=== PATIENT | female | born 1940 | race Caucasian/White ===

== ENCOUNTER 2017-11-07 08:10 | Inpatient (IN) ==
[2017-11-07] MEDS ORDERED: 0.9 % SODIUM CHLORIDE 1,000 ML IV ONE (08:17)
[2017-11-07] MEDS ORDERED: LEVOFLOXACIN 750 MG/150 ML BAG IV ONE (08:25)
[2017-11-07] MEDS ORDERED: ACETAMINOPHEN 500 MG TABLET PO ONE (08:30)
--- NOTE | 2017-11-07 08:30 | Emergency Department Note ---
Fever HPI - General Chief Complaint: Fever Stated Complaint: Fever, neck pain Time Seen by Provider: 11/07/17 08:25 Source: patient Mode of arrival: EMS Limitations: no limitations - History of Present Illness HPI Narrative: Patient presents by ambulance, fever and malaise. Unclear what her home situation is, patient has active delirium. History of recent treatment for UTI , med unknown. Patient's main concern is "my neck hurts". Patient sedated, arousable briefly, mumbles, no historians available or family at the bedside - Related Data Home Medications Medication Instructions Recorded Confirmed Acetaminophen [Tylenol] 325 mg PO Q4HP PRN 11/04/17 11/04/17 Albuterol Sulfate [Ventolin] 2 puff INH Q4HP PRN 11/04/17 11/04/17 Baclofen [Lioresal] 5 mg PO HS 11/04/17 11/04/17 Carbidopa/Levodopa [Carbidopa-Levo 2 each PO TID 11/04/17 11/04/17 25-100 mg Odt] Carboxymethylcellulose Sodium 1 each OP Q2H 11/04/17 11/04/17 [Refresh Celluvisc] Dabigatran Etexilate Mesylate 150 mg PO BID 11/04/17 11/04/17 [Pradaxa] Fluticasone Propionate [Flovent 50 mcg IH BID 11/04/17 11/04/17 Diskus] Fluticasone/Vilanterol [Breo 1 inh IH DAILY 11/04/17 11/04/17 Ellipta 100-25 Mcg INH] Gabapentin [Neurontin] 900 mg PO TID 11/04/17 11/04/17 [place] Carbonate 150 mg PO BID 11/04/17 11/04/17 Nystatin Crm 1 dose TOPICAL TID 11/04/17 11/04/17 Omeprazole [PriLOSEC] 20 mg PO ACB 11/04/17 11/04/17 Ondansetron HCl [Zofran] 4 mg PO Q4-6H PRN 11/04/17 11/04/17 Oxybutynin Chloride [Oxybutynin 5 mg PO DAILY 11/04/17 11/04/17 Chloride ER] Primidone [Mysoline] 100 mg PO BID 11/04/17 11/04/17 Propranolol [Inderal] 20 mg PO BID 11/04/17 11/04/17 Sertraline HCl [Zoloft] 50 mg PO DAILY 11/04/17 11/04/17 Umeclidinium [place] [Incruse 62.5 mcg IH DAILY 11/04/17 11/04/17 Ellipta] Vitamin D3 5,000 unit PO DAILY 11/04/17 11/04/17 busPIRone HCL [Buspirone HCl] 10 mg PO TID 11/04/17 11/04/17 oxyCODONE HCL [Oxycodone HCl] 1 tab PO QIDP 11/04/17 11/04/17 rOPINIRole HCL [Requip] 0.5 mg PO BID 11/04/17 11/04/17 Allergies Allergy/AdvReac Type Severity Reaction Status Date / Time lactose Allergy Verified 11/07/17 08:13 pollen extracts Allergy Verified 11/07/17 08:13 promethazine Allergy Verified 11/07/17 08:13 Review of Systems Limitations: ROS unobtainable due to patients medical condition Fever PMH - Past Medical History PMFSH Narrative: History obtained from chart review Medical history: Reports: asthma, GERD, hypertension, pulmonary embolus, other ( RLS. Chronic pain. Urinary incontinence. Vitamin D deficiency. Polyneuropathy. UTI's. Tremor. Parkinson's. DVT.) Surgical history ED: Reports: non-contributory Psychiatric history: Reports: bipolar Family history: Reports: no significant family history, non-contributory - Social History smoking status: Unknown if ever smoked Physical Exam Limitations: no limitations General appearance: in distress, lethargic, malaise Head: atraumatic, normocephalic Eye: Present: normal appearance ENT: normal exam, mucous membranes dry Neck: Present: normal inspection, tenderness (Diffusely: head shoulders and neck ). Absent: lymphadenopathy Chest: Present: normal inspection, symmetric chest wall rise. Absent: tenderness Respiratory: Present: normal lung sounds bilaterally, other (No tachypnea). Absent: respiratory distress Cardiovascular: Present: regular rate, normal rhythm. Absent: systolic murmur Abdominal: Present: soft. Absent: tenderness Extremities: Present: pedal edema, pretibial edema (3+ pedal) Neurological: Absent: alert, oriented X3 Psychiatric: Present: flat affect Skin: Present: warm. Absent: diaphoresis Course Vital Signs Temperature 101.7 F H 11/07/17 08:10 Pulse Rate 80 11/07/17 08:10 Respiratory Rate 16 11/07/17 08:10 Blood Pressure 170/89 11/07/17 08:10 Pulse Oximetry (%) 96 11/07/17 08:10 Temperature 101.7 F H 11/07/17 08:10 Pulse Rate 76 11/07/17 08:26 Respiratory Rate 16 11/07/17 08:10 Blood Pressure 149/130 11/07/17 08:20 Pulse Oximetry (%) 95 11/07/17 08:26 Disposition Pt seen by PROFESSIONAL DEVELOPMENT INSTRUCTOR/PA only: No Clinical Impression: Acute febrile illness, Acute delirium Summary: Suspect bacterial infection, possible viral Cultures obtained, urinalysis and imaging pending Patient CARE to be transition to Dr. sanches at shift change, see his report for final diagnosis and disposition Disposition: Still a Patient
--- NOTE | 2017-11-07 09:01 | XRay Report ---
INDICATION: Fever TECHNIQUE: AP chest x-ray,semierect portable COMPARISON: 11/04/2017 FINDINGS:Mild left basilar infiltrate. Mild infiltrate at the right cardiophrenic angle. Findings may represent pneumonia in this patient with a history of fever. Mid and upper lungs are negative. Heart size and pulmonary vascularity are within normal limits considering AP positioning. IMPRESSION: 1. Small bibasilar infiltrates 2. Findings consistent with pneumonia Interpreted and Authenticated by: Tristian Lorenzo 11/07/17
[2017-11-07 09:08] LABS: Basophils # (Auto) 0 K/mcL (0.0-0.3); Basophils % (Auto) 0 % (0.0-2.0); Eosinophils # (Auto) 0.1 K/mcL (0.0-0.7); Eosinophils % (Auto) 1.4 % (0.0-7.0); Granulocytes % (Auto) 78.7 % (38.0-78.0); Lymphocytes % (Auto) 10.8 % (15.5-49.0); Mean Cell Volume 91.5 fL (80.0-100.0); Mean Corpuscular HGB Conc 32.7 g/dL (31.0-36.0); Mean Corpuscular Hemoglobin 29.9 pg (26.0-34.0); Monocytes # (Auto) 0.9 K/mcL (0.1-0.9); Monocytes % (Auto) 9.1 % (1.0-12.0); Platelet Count 330 K/mcL (140-440); RBC 3.82 M/mcL (4.00-5.20); Red Cell Distribution Width 13.6 % (11.5-14.5)
[2017-11-07 09:38] LABS: ALT/SGPT < 5 U/l (0-40); Albumin 3.6 gm/dL (3.2-5.2); Albumin/Globulin Ratio 1.1 (1.0-2.3); Alkaline Phosphatase 77 U/L (39-117); Blood Urea Nitrogen 10 mg/dl (8-23)
--- NOTE | 2017-11-07 10:13 | Cat Scan Report ---
CLINICAL INFORMATION: Fall. Head injury. COMPARISON: None. TECHNIQUE: Axial noncontrast-enhanced images through the brain. FINDINGS: No acute intracranial hemorrhage. No subdural or subarachnoid hemorrhage. No focal intra-axial attenuation abnormalities. No intra-axial hematoma. No localized mass effect. No midline shift. There is age appropriate cerebral atrophy and mild white matter abnormality. There is mild cerebellar atrophy. Basilar cisterns are normal. No calvarial fracture. Temporal bones are negative. There is inflammatory disease within ethmoid sinuses bilaterally. Mild inflammatory disease within sphenoid and right frontal sinuses IMPRESSION: 1. No acute intracranial hemorrhage. No acute or focal abnormality 2. Soft tissue abnormality within paranasal sinuses consistent with inflammatory disease The exam was performed using radiation dose optimization techniques including, but not limited to, automated exposure control, adjustment of the mA and/or kV according to patient size and use of iterative reconstruction technique. Interpreted and Authenticated by: Tristian Lorenzo 11/07/17
--- NOTE | 2017-11-07 10:18 | Cat Scan Report ---
CLINICAL INFORMATION: Fall. Cervical spine pain TECHNIQUE: Axial thin section images of the cervical spine. Sagittally and coronally reformatted images COMPARISON: None. FINDINGS: No acute cervical spine fracture. Cervical vertebral bodies and spinous processes are negative. Facet joints are normally aligned. No perched or locked facet. Multilevel degenerative disc disease and facet arthropathy. Asymmetric left C2-C3 facet disease. Asymmetric C3-C4 left facet arthropathy. There is bilateral C4-C5 facet arthropathy. There is mild C4-C5 anterolisthesis. There is mild wedging deformity of the C5 vertebral body. Odontoid process is negative. No lateral axial subluxation. Occipital condyles are negative. No prevertebral soft tissue abnormality. There is a 2 cm left thyroid nodule. There are smaller nodules as well. Thyroid ultrasound recommended No pneumothorax. IMPRESSION: 1. Multilevel degenerative disc disease and facet arthropathy. 2. Mild C4-C5 anterolisthesis 3. No cervical spine fracture or acute posttraumatic abnormality 4. Findings consistent with multinodular thyroid Interpreted and Authenticated by: Tristian Lorenzo 11/07/17
[2017-11-07 10:39] LABS: Appearance,Urine CLOUDY; Bacteria,Urine 0 /hpf (0); Bilirubin,Urine NEG (NEG); Color,Urine YELLOW; Glucose,Urine (UA) NEGATIVE (NEG); Leukocyte Esterase,Urine 500 /uL (NEG); Nitrate,Urine POS (NEG); Protein,Urine 30 mg/dL (NEG); Specific Gravity,Urine 1.016 (1.000-1.035); Urine Blood NEG mg/dL (<0.03); Urine RBC 3 /hpf (0-1); Urine Squamous Epithelial Cell 2 /hpf (0-4); Urine Transitional Epi Cells < 1 /hpf (0-2); Urine WBC > 182 /hpf (0-4); Urobilinogen,Urine NEG (NEG)
--- NOTE | 2017-11-07 11:37 | Emergency Department Note ---
General Adult HPI - General Chief complaint: Fever Stated complaint: Fever, neck pain Time Seen by Provider: 11/07/17 08:25 Source: patient Mode of arrival: EMS Limitations: no limitations - Related Data Home Medications Medication Instructions Recorded Confirmed Acetaminophen [Tylenol] 325 mg PO Q4HP PRN 11/04/17 11/04/17 Albuterol Sulfate [Ventolin] 2 puff INH Q4HP PRN 11/04/17 11/04/17 Baclofen [Lioresal] 5 mg PO HS 11/04/17 11/04/17 Carbidopa/Levodopa [Carbidopa-Levo 2 each PO TID 11/04/17 11/04/17 25-100 mg Odt] Carboxymethylcellulose Sodium 1 each OP Q2H 11/04/17 11/04/17 [Refresh Celluvisc] Dabigatran Etexilate Mesylate 150 mg PO BID 11/04/17 11/04/17 [Pradaxa] Fluticasone Propionate [Flovent 50 mcg IH BID 11/04/17 11/04/17 Diskus] Fluticasone/Vilanterol [Breo 1 inh IH DAILY 11/04/17 11/04/17 Ellipta 100-25 Mcg INH] Gabapentin [Neurontin] 900 mg PO TID 11/04/17 11/04/17 [place] Carbonate 150 mg PO BID 11/04/17 11/04/17 Nystatin Crm 1 dose TOPICAL TID 11/04/17 11/04/17 Omeprazole [PriLOSEC] 20 mg PO ACB 11/04/17 11/04/17 Ondansetron HCl [Zofran] 4 mg PO Q4-6H PRN 11/04/17 11/04/17 Oxybutynin Chloride [Oxybutynin 5 mg PO DAILY 11/04/17 11/04/17 Chloride ER] Primidone [Mysoline] 100 mg PO BID 11/04/17 11/04/17 Propranolol [Inderal] 20 mg PO BID 11/04/17 11/04/17 Sertraline HCl [Zoloft] 50 mg PO DAILY 11/04/17 11/04/17 Umeclidinium [place] [Incruse 62.5 mcg IH DAILY 11/04/17 11/04/17 Ellipta] Vitamin D3 5,000 unit PO DAILY 11/04/17 11/04/17 busPIRone HCL [Buspirone HCl] 10 mg PO TID 11/04/17 11/04/17 oxyCODONE HCL [Oxycodone HCl] 1 tab PO QIDP 11/04/17 11/04/17 rOPINIRole HCL [Requip] 0.5 mg PO BID 11/04/17 11/04/17 Allergies Allergy/AdvReac Type Severity Reaction Status Date / Time lactose Allergy Verified 11/07/17 08:13 pollen extracts Allergy Verified 11/07/17 08:13 promethazine Allergy Verified 11/07/17 08:13 Past Medical History - Past Medical History Medical history: Reports: asthma, GERD, hypertension, pulmonary embolus, other ( RLS. Chronic pain. Urinary incontinence. Vitamin D deficiency. Polyneuropathy. UTI's. Tremor. Parkinson's. DVT.) Psychiatric history: Reports: bipolar Surgical history ED: Reports: non-contributory - Social History smoking status: Unknown if ever smoked Physical Exam Limitations: no limitations General appearance: in distress, lethargic, malaise Course Vital Signs Temperature 101.7 F H 11/07/17 08:10 Pulse Rate 80 11/07/17 08:10 Respiratory Rate 16 11/07/17 08:10 Blood Pressure 170/89 11/07/17 08:10 Pulse Oximetry (%) 96 11/07/17 08:10 Temperature 100.4 F H 11/07/17 09:35 Pulse Rate 63 11/07/17 11:28 Respiratory Rate 16 11/07/17 08:10 Blood Pressure 134/75 11/07/17 11:00 Pulse Oximetry (%) 94 11/07/17 11:28 Medical Decision Making - [facility] Narrative Medical decision making narrative: Chest x-ray shows pneumonia and urine shows an infection. Patient is too weak to walk. She will be admitted to the hospital by the hospitalist service. - Lab Data Lab results reviewed: Yes I reviewed the patient's lab results. Result diagrams: 11/07/17 08:26 11/07/17 08:26 Lab Results 11/07/17 11/07/17 11/07/17 Range/Units 08:26 08:26 08:26 WBC 9.5 (4.5-11.0) K/mcL RBC 3.82 L (4.00-5.20) M/mcL Hgb 11.4 L (12.0-15.0) g/dL Hct 35.0 L (36.0-48.0) % MCV 91.5 (80.0-100.0) fL MCH 29.9 (26.0-34.0) pg MCHC 32.7 (31.0-36.0) g/dL RDW 13.6 (11.5-14.5) % Plt Count 330 (140-440) K/mcL MPV 8.3 (7.4-10.4) fL Gran % 78.7 H (38.0-78.0) % Lymph % (Auto) 10.8 L (15.5-49.0) % Park % (Auto) 9.1 (1.0-12.0) % Eos % (Auto) 1.4 (0.0-7.0) % Baso % (Auto) 0 (0.0-2.0) % Gran # 7.5 (1.8-8.0) K/mcL Lymph # (Auto) 1.0 L (1.5-4.8) K/mcL Park # (Auto) 0.9 (0.1-0.9) K/mcL Eos # (Auto) 0.1 (0.0-0.7) K/mcL Baso # (Auto) 0 (0.0-0.3) K/mcL VBG Lactic Acid 1.0 (0.5-2.2) mmol/L Sodium 137 (133-145) mmol/L Potassium 3.6 (3.3-5.1) mmol/L Chloride 101 (96-108) mmol/L Carbon Dioxide 22 (22-30) mmol/L Anion Gap 14.0 (8-16) BUN 10 (8-23) mg/dl Creatinine 1.2 H (0.6-1.1) mg/dl GFR Calculation 43 Glucose 174 H (70-105) mg/dL Calcium 8.7 (8.6-10.4) mg/dl Total Bilirubin 0.5 (0.0-1.0) mg/dL AST 12 (0-37) U/l ALT < 5 (0-40) U/l Alkaline Phosphatase 77 (39-117) U/L NT-Pro-B Natriuret Pep 1180.0 H (0-450) pg/ml Total Protein 6.8 (5.9-8.4) gm/dL Albumin 3.6 (3.2-5.2) gm/dL Globulin 3.2 (2.2-3.7) gm/dL Albumin/Globulin Ratio 1.1 (1.0-2.3) Urine Color Urine Appearance Urine pH (5.0-9.0) Ur Specific [place] (1.000-1.035) Urine Protein (NEG) mg/dL Urine Glucose (UA) (NEG) mg/dL Urine Ketones (NEG) mg/dL Urine Occult Blood (<0.03) mg/dL Urine Nitrate (NEG) Urine Bilirubin (NEG) mg/dL Urine Urobilinogen (NEG) mg/dL Ur Leukocyte Esterase (NEG) /uL Urine RBC (0-1) /hpf Urine WBC (0-4) /hpf Ur Squamous Epith Cells (0-4) /hpf Ur Transition Epith Cell (0-2) /hpf Urine Bacteria (0) /hpf Ur Culture Indicated? 11/07/17 Range/Units 09:47 WBC (4.5-11.0) K/mcL RBC (4.00-5.20) M/mcL Hgb (12.0-15.0) g/dL Hct (36.0-48.0) % MCV (80.0-100.0) fL MCH (26.0-34.0) pg MCHC (31.0-36.0) g/dL RDW (11.5-14.5) % Plt Count (140-440) K/mcL MPV (7.4-10.4) fL Gran % (38.0-78.0) % Lymph % (Auto) (15.5-49.0) % Park % (Auto) (1.0-12.0) % Eos % (Auto) (0.0-7.0) % Baso % (Auto) (0.0-2.0) % Gran # (1.8-8.0) K/mcL Lymph # (Auto) (1.5-4.8) K/mcL [place] # (Auto) (0.1-0.9) K/mcL Eos # (Auto) (0.0-0.7) K/mcL Baso # (Auto) (0.0-0.3) K/mcL VBG Lactic Acid (0.5-2.2) mmol/L Sodium (133-145) mmol/L Potassium (3.3-5.1) mmol/L Chloride (96-108) mmol/L Carbon Dioxide (22-30) mmol/L Anion Gap (8-16) BUN (8-23) mg/dl Creatinine (0.6-1.1) mg/dl GFR Calculation Glucose (70-105) mg/dL Calcium (8.6-10.4) mg/dl Total Bilirubin (0.0-1.0) mg/dL AST (0-37) U/l ALT (0-40) U/l Alkaline Phosphatase (39-117) U/L NT-Pro-B Natriuret Pep (0-450) pg/ml Total Protein (5.9-8.4) gm/dL Albumin (3.2-5.2) gm/dL Globulin (2.2-3.7) gm/dL Albumin/Globulin Ratio (1.0-2.3) Urine Color Yellow Urine Appearance Cloudy Urine pH 6.0 (5.0-9.0) Ur Specific [place] 1.016 (1.000-1.035) Urine Protein 30 A (NEG) mg/dL Urine Glucose (UA) Negative (NEG) mg/dL Urine Ketones 5/tr A (NEG) mg/dL Urine Occult Blood Neg (<0.03) mg/dL Urine Nitrate Pos A (NEG) Urine Bilirubin Neg (NEG) mg/dL Urine Urobilinogen Neg (NEG) mg/dL Ur Leukocyte Esterase 500 A (NEG) /uL Urine RBC 3 H (0-1) /hpf Urine WBC > 182 H (0-4) /hpf Ur Squamous Epith Cells 2 (0-4) /hpf Ur Transition Epith Cell < 1 (0-2) /hpf Urine Bacteria 0 (0) /hpf Ur Culture Indicated? Yes - Radiology Data Radiology results reviewed: Yes I reviewed the patient's radiology results. Disposition Pt seen by RN SUPPORT SERVICES/PA only: No Clinical Impression: Acute febrile illness, Acute delirium, Community acquired pneumonia, Urinary tract infection Disposition: Xfer As Inpt ([facility]) Condition: Fair Time of Disposition: 11:37
[2017-11-07] MEDS ORDERED: guaiFENesin/CODEINE 10 ML UDC PO PRN (13:06)
[2017-11-07] MEDS ORDERED: traZODone HCL 50 MG TABLET PO PRN (13:06)
[2017-11-07] MEDS ORDERED: ACETAMINOPHEN 325 MG TABLET PO PRN ×2 (13:06→15:04)
[2017-11-07] MEDS ORDERED: MAGNESIUM SULFATE 2 GM/50 ML BAG IV PRN (13:06)
[2017-11-07] MEDS ORDERED: POTASSIUM CHLORIDE 20 MEQ PACKET PO PRN (13:06)
--- NOTE | 2017-11-07 14:22 | History and Physical Report ---
DATE OF ADMISSION: 11/07/2017 REASON FOR ADMISSION: Weakness, fever, confused. HISTORY OF CHIEF COMPLAINT: The patient is a 77-year-old who resides in assisted living facility at [facility] and was transferred by EMS after she was found confused, weak, altered, lethargic, along with fever. The patient has not been able to function over the last 24 hours and has been laying on bed. She has had multiple recent falls due to weakness and has notable bruise on the head and arms. Initial workup in the ER was significant for significant pyuria along with bilateral chest infiltrates suggestive of pneumonia. After receiving antibiotics and crystalloids Hospitalist Service was consulted. The patient is quite altered and was unable to provide answers to any questions. Most of the history was obtained from review of medical records and EMS. At the time of evaluation, the patient is slightly perked up. She was able to participate in review of systems, but unable to provide any reasonable history. She resides at [facility] and no family members were present. REVIEW OF SYSTEMS: A ten-point review of system was performed and negative except the ones discussed above. PAST MEDICAL HISTORY: 1. Degenerative joint disease. 2. Reactive airway disease. 3. Parkinsonism. 4. History of pulmonary embolism. 5. Anticoagulation for PE. 6. Bipolar disorder. 7. GERD. 8. Urinary frequency. 9. Anxiety disorder. 10. Chronic pain. FAMILY HISTORY: None significant, noncontributory. SURGICAL HISTORY: None. SOCIAL HISTORY: The patient resides at the assisted living. She has advanced dementia. Patient has two daughters who live out of town. No history of smoking or alcoholism. ALLERGIES: PROMETHAZINE. CURRENT MEDICATIONS: 1. Ropinirole 0.5 mg b.i.d. 2. Oxycodone one q.i.d. p.r.n. 3. BuSpar 10 mg t.i.d. 4. Sertraline 50 mg. 5. Propranolol 20 mg b.i.d. 6. Primidone 100 mg b.i.d. 7. Oxybutynin 5 mg. 8. Zofran 4 mg q.6 p.r.n. 9. Omeprazole 20 mg. 10. [place] 150 mg b.i.d. 11. Gabapentin 900 mg t.i.d. 12. Flovent inhaled b.i.d. 13. Dabigatran 150 mg b.i.d. 14. Levodopa/Carbidopa 25/100 mg two t.i.d. 15. Baclofen 5 mg at bedtime. 16. Albuterol p.r.n. PHYSICAL EXAMINATION: GENERAL: The patient is minimally responsive. However, opens eyes to verbal commands. BMI 28.8, height 5 feet 5 inches. VITAL SIGNS: Blood pressure 149/130, respiratory rate 16, temperature 101.7, pulse 80, sats 96% on room air. HEENT: Pupils symmetric. Oral cavity is dry. No ear or nose discharge. Head bruising noted on the forehead, but no bleeding. NECK: No lymphadenopathy. HEART: S1, S2 regular. ESM grade 1. Diminished breath sounds at bases. ABDOMEN: Soft and nontender. LOWER EXTREMITIES: No cyanosis or clubbing. No joint swelling. SKIN: No suspicious lesions. PSYCHIATRIC: Lethargic, fatigued, anxious, but no agitation. NEURO: Higher functions could not be performed, but moving all four extremities. LABS AND IMAGING: White count 9.5, hemoglobin 11.4, platelets 330, neutrophils 77%. Lactic acid 1.0. Sodium 137, potassium 3.6, creatinine 1.2, and BUN 10. BNP 1180. LFTs unremarkable. UA significant for nitrate positive along with over 182 WBCs. X-ray chest: Bibasilar infiltrates suggestive of pneumonia. CT cervical spine: Multilevel DJD, no cervical spine fracture. Multinodular thyroid noted. CT head: No acute hemorrhage or soft tissue abnormality. ASSESSMENT AND PLAN: A 77-year-old assisted care living resident who comes in with significant mental status change, complicated UTI, pneumonia and multiple falls. 1. Acute mental status change, likely a combination of infectious etiology, including UTI and pneumonia. Continue close monitoring. Underlying dementia with exacerbation. 2. Complicated UTI. Await cultures. Continue broad antibiotics and deescalate as indicated. 3. Bilateral pneumonia, likely aspiration. Speech therapy evaluation, aspiration precautions, and antibiotic coverage to be deescalated with clinical improvement. 4. Multiple falls secondary to deconditioning, weakness and underlying infection. Continue aggressive PT/ OT eval for gait and safety training. The patient will require SNF transfer. 5. Other prior medical issues, including: a. History of dementia, currently exacerbated due to underlying infection. Continue close monitoring with delirium watch. b. History of parkinsonism. Continue levodopa/carbidopa, ropinirole. c. Anxiety disorder. Continue sertraline. d. Degenerative joint disease. Continue oxycodone along with baclofen. e. History of bipolar disorder. Continue lithium. f. GERD. Continue PPI. 6. CODE STATUS: FULL CODE. PLAN FOR TODAY: 1. Admit as inpatient. 2. Antibiotic coverage. 3. Close hemodynamic monitoring along with delirium watch. 4. Preexisting medical condition management on prior home medications. 5. Anticoagulation on Pradaxa. A total of 90 minutes spent on history and physical including discussions with the ED physician, review of medical records, discussions with discussed the case management for safe discharge plan and coordinating care. [email or web address] Job ID: [id number] Doc ID: [id number] Vito Jones MD [facility]
[2017-11-07] MEDS ORDERED: CARBOXYMETHYLCELLULOSE SODIUM OU PRN (15:04)
[2017-11-07] MEDS: 0.9 % SODIUM CHLORIDE 10 ML SYRINGE IV SCH ×2 (15:11→20:00)
[2017-11-07] MEDS: PIPERACILLIN SODIUM/TAZOBACTAM 3.375 GM in DEXTROSE 5% IN WATER 50 ML IV SCH ×3 (15:11→23:52)
[2017-11-07] MEDS ORDERED: ERGOCALCIFEROL (VITAMIN D2) 50,000 UNIT CAPSULE PO SCH (15:15)
[2017-11-07] MEDS ORDERED: ONDANSETRON ODT 4 MG TABLET SL PRN (15:19)
[2017-11-07] MEDS: oxyCODONE HCL 5 MG TABLET PO PRN ×2 (15:43→22:23)
[2017-11-07] MEDS: POTASSIUM CHLORIDE 10 MEQ TABLET PO SCH (17:45)
[2017-11-07] MEDS: BUDESONIDE 0.5 MG/2 ML AMPUL.NEB NEB SCH (20:14)
[2017-11-07] MEDS: busPIRone 5 MG TABLET PO SCH (20:48)
[2017-11-07] MEDS: FLUTICASONE PROPIONATE SPRAY.NAS NS SCH (20:49)
[2017-11-07] MEDS: PROPRANOLOL 10 MG TABLET PO SCH (20:49)
[2017-11-07] MEDS: DOCUSATE SODIUM 100 MG CAPSULE PO SCH (20:49)
[2017-11-07] MEDS: BACLOFEN 10 MG TABLET PO SCH (20:50)
[2017-11-07] MEDS: LITHIUM CARBONATE 150 MG CAPSULE PO SCH (20:51)
[2017-11-07] MEDS: NITROFURANTOIN SR 100 MG CAPSULE PO SCH (20:52)
[2017-11-07] MEDS: PRIMIDONE 50 MG TABLET PO SCH (20:52)
[2017-11-07] MEDS: GABAPENTIN 300 MG CAPSULE PO SCH (20:53)
[2017-11-07] MEDS: NYSTATIN CRM 1 DOSE TUBE TOPICAL SCH (20:54)
[2017-11-07] MEDS: DABIGATRAN ETEXILATE MESYLATE 75 MG CAPSULE PO SCH (20:54)
[2017-11-07] MEDS: CARBIDOPA/LEVODOPA 25/100 TABLET PO SCH (20:55)
[2017-11-07] MEDS: SENNOSIDES/DOCUSATE SODIUM 1 TAB TABLET PO SCH (20:55)
[2017-11-07] MEDS: rOPINIRole 0.25 MG TABLET PO SCH (20:55)
[2017-11-07] MEDS ORDERED: PRIMIDONE 50 MG TABLET PO SCH (21:00)
[2017-11-07] MEDS ORDERED: HEPARIN 5,000 UNIT/ML VIAL SQ SCH (21:00)
[2017-11-07] MEDS: ONDANSETRON 4 MG/2 ML VIAL IV PRN (21:53)
[2017-11-08] MEDS: oxyCODONE HCL 5 MG TABLET PO PRN ×4 (04:36→22:21)
[2017-11-08] MEDS: PIPERACILLIN SODIUM/TAZOBACTAM 3.375 GM in DEXTROSE 5% IN WATER 50 ML IV SCH ×4 (05:34→23:29)
[2017-11-08] MEDS: 0.9 % SODIUM CHLORIDE 10 ML SYRINGE IV SCH ×3 (05:34→20:04)
[2017-11-08 06:12] LABS: Mean Cell Volume 91.9 fL (80.0-100.0); Mean Corpuscular HGB Conc 32.9 g/dL (31.0-36.0); Mean Corpuscular Hemoglobin 30.3 pg (26.0-34.0); Platelet Count 279 K/mcL (140-440); RBC 3.54 M/mcL (4.00-5.20); Red Cell Distribution Width 13.9 % (11.5-14.5)
[2017-11-08 06:40] LABS: ALT/SGPT < 5 U/l (0-40); Albumin 3.4 gm/dL (3.2-5.2); Albumin/Globulin Ratio 1.2 (1.0-2.3); Alkaline Phosphatase 66 U/L (39-117); Bilirubin,Direct < 0.2 mg/dL (0.0-0.3); Blood Urea Nitrogen 9 mg/dl (8-23); Gamma Glutamyl Transpeptidase 43 U/L (5-36); Magnesium 1.6 mg/dL (1.6-2.5); Uric Acid 4.6 mg/dL (2.5-8.0)
[2017-11-08 07:22] LABS: Band Neutrophils % 1 % (0-10); Lymphocytes % 14 % (15-49); Monocytes % (Manual) 7 % (1-12); Platelet Estimate NORMAL (NORMAL); RBC Morphology NORMAL (NORMAL); Segmented Neutrophils % 78 % (38-78)
--- NOTE | 2017-11-08 07:29 | Internal Med Progress Note ---
Medical - PN: Subj Patient information: Note initiated : 11/08/17 at 7:26 am Service Date, if different from initiated Date: [] Patient: Celia Villasenor 77 y/o F admitted on 11/07/17 for Fever, Neck Pain. Chief Complaint: [] Interval history: [id number]-old assisted care living resident admitted with complicated UTI and mental status change and multiple falls. Started on broad antibiotic coverage. Await cultures. Admitted as inpatient. 11/08- patient clinically improved. Responding well to antibiotics.stable labs and hemodynamics. Saturating 94% on room air. Afebrile. Tolerating physical therapy and diet. - Constitutional Vitals: Vital Signs Temp Pulse Resp BP Pulse Ox 97.8 F 72 16 124/68 94 11/08/17 06:30 11/08/17 04:00 11/08/17 06:30 11/08/17 06:30 11/08/17 06:30 Period Temp Pulse Resp BP Sys/Hinton Pulse Ox Last 24 Hr 97.8 F-101.7 F 63-138 12-20 105-170/63-130 27-99 Intake and Output 11/07/17 11/08/17 11/08/17 21:59 05:59 13:59 Intake Total 100 / 100 950 / 950 Output Total 650 / 650 600 / 600 Balance -550 / -550 350 / 350 Weight 170 lb Intake & Output: Intake & Output 11/07/17 11/08/17 11/08/17 21:59 05:59 13:59 Intake Total 100 / 100 950 / 950 Output Total 650 / 650 600 / 600 Balance -550 / -550 350 / 350 Weight 170 lb Intake: IV 100 / 100 50 / 50 Zosyn 3.375 gm In Dextrose 5% 100 / 100 50 / 50 in Water 50 ml @ 100 mls/hr IV Q6H [facility] Rx#:[id number] Oral 900 / 900 Output: Void Amount 650 / 650 600 / 600 Other: # Voids 1 # Bowel Movements 1 General appearance: no acute distress Exam: nonlabored breathing nondistended abdomen Minimal bruising Medical - PN: Obj Da - Labs CBC & Chem 7: 11/08/17 05:04 11/08/17 05:04 Labs: Abnormal Lab Results 11/08/17 11/08/17 11/07/17 05:04 05:04 09:47 RBC 3.54 L Hgb 10.7 L Hct 32.5 L Gran % Lymph % (Auto) Lymph # (Auto) Lymphocytes % 14 L Carbon Dioxide 20 L Creatinine Glucose 137 H Calcium 8.4 L Phosphorus 2.5 L GGT 43 H NT-Pro-B Natriuret Pep Urine Protein 30 A Urine Ketones 5/tr A Urine Nitrate Pos A Ur Leukocyte Esterase 500 A Urine RBC 3 H Urine WBC > 182 H 11/07/17 11/07/17 08:26 08:26 RBC 3.82 L Hgb 11.4 L Hct 35.0 L Gran % 78.7 H Lymph % (Auto) 10.8 L Lymph # (Auto) 1.0 L Lymphocytes % Carbon Dioxide Creatinine 1.2 H Glucose 174 H Calcium Phosphorus GGT NT-Pro-B Natriuret Pep 1180.0 H Urine Protein Urine Ketones Urine Nitrate Ur Leukocyte Esterase Urine RBC Urine WBC Meds: Medications Acetaminophen (Tylenol) 650 mg PO Q4-6HP PRN PRN Reason: PAIN/FEVER > 101 Albuterol/Ipratropium (Duoneb) 3 ml NEB Q4HP PRN PRN Reason: Shortness Of Breath Baclofen (Lioresal) 5 mg PO HS [facility] Last Admin: 11/07/17 20:50 Dose: 5 mg Budesonide (Pulmicort) 0.5 mg NEB Q12 [facility] Last Admin: 11/07/17 20:14 Dose: 0.5 mg Buspirone HCl (Buspar) 10 mg PO TID [facility] Last Admin: 11/07/17 20:48 Dose: 10 mg Carbidopa/Levodopa (Sinemet 25/100) 2 tab PO TID [facility] Last Admin: 11/07/17 20:55 Dose: 2 tab Dabigatran (Pradaxa) 150 mg PO BID [facility] Last Admin: 11/07/17 20:54 Dose: 150 mg Docusate Sodium (Colace) 100 mg PO BID [facility] Last Admin: 11/07/17 20:49 Dose: 100 mg Fluticasone Propionate (Flonase) 1 spray NS BID [facility] Last Admin: 11/07/17 20:49 Dose: Not Given Furosemide (Lasix) 20 mg PO DAILY [facility] Gabapentin (Neurontin) 900 mg PO TID [facility] Last Admin: 11/07/17 20:53 Dose: 900 mg Guaifenesin/Codeine Phosphate (Robitussin Ac) 10 ml PO Q4HP PRN PRN Reason: Cough Levofloxacin (Levaquin) 750 mg in 150 mls @ 100 mls/hr IV Q48H [facility] Magnesium Sulfate (Magnesium Sulfate) 2 gm in 50 mls @ 50 mls/hr IV UD PRN PRN Reason: MG = or < 1.7 Piperacillin Sod/Tazobactam (Sod 3.375 gm/ Dextrose) 50 mls @ 100 mls/hr IV Q6H [facility] Last Admin: 11/08/17 05:34 Dose: 100 mls/hr Iron Carb/Multivit/It Security Engineer/Folic Acid (Multivitamin W/Minerals) 1 tab PO DAILY [facility] [place] Carbonate ([place] Carbonate) 150 mg PO BID [facility] Last Admin: 11/07/17 20:51 Dose: 150 mg Nitrofurantoin Macrocrystals (Macrobid) 100 mg PO BID [facility] Last Admin: 11/07/17 20:52 Dose: 100 mg Nystatin (Nystatin Crm) 1 dose TOPICAL TID [facility] Last Admin: 11/07/17 20:54 Dose: Not Given Omeprazole (Prilosec) 20 mg PO ACB [facility] Ondansetron HCl (Zofran) 4 mg IV Q4-6HP PRN PRN Reason: Nausea And Vomiting Last Admin: 11/07/17 21:53 Dose: 4 mg Ondansetron HCl (Zofran Odt) 4 mg SL Q6HP PRN PRN Reason: Nausea Oxybutynin Chloride (Ditropan Xl) 5 mg PO DAILY [facility] Oxycodone HCl (Roxicodone) 10 mg PO QIDP PRN PRN Reason: Pain Last Admin: 11/08/17 04:36 Dose: 10 mg Fluticasone/Vilanterol [Breo Ellipta] 100-25 Mcg Inhaler 1 dose INH DAILY [facility] Umeclidinium [place] [Incruse Ellipta] 62.5 Mcg Inhaler 1 dose INH DAILY [facility] Potassium Chloride (Klor-Con) 40 meq PO DAILYP PRN PRN Reason: K+ < 3.5 Potassium Chloride (Kdur) 10 meq PO BIDCC [facility] Last Admin: 11/07/17 17:45 Dose: 10 meq Primidone (Mysoline) 100 mg PO BID [facility] Last Admin: 11/07/17 20:52 Dose: 100 mg Propranolol HCl (Inderal) 20 mg PO BID [facility] Last Admin: 11/07/17 20:49 Dose: 20 mg Ropinirole HCl (Requip) 0.5 mg PO BID [facility] Last Admin: 11/07/17 20:55 Dose: 0.5 mg Senna/Docusate Sodium (Senna Plus Tablet) 1 tab PO HS [facility] Last Admin: 11/07/17 20:55 Dose: 1 tab Sertraline HCl (Zoloft) 50 mg PO DAILY [facility] Sodium Chloride (Saline Flush) 10 ml IV Q8 [facility] Last Admin: 11/08/17 05:34 Dose: 10 ml Trazodone HCl (Desyrel) 50 mg PO HSP PRN PRN Reason: Insomnia Medical - PN: A/P - Time Spent With Patient Total time spent is greater than 50% in coordination of care (as documented) at patient's floor/unit and/or counseling patient: 25 - 35 minutes (1) Complicated UTI (urinary tract infection) Status: Acute Assessment and plan: * complicated UTI-await cultures. continue broad antibiotic coverage * Acute mental status change clinically improving-more lucid and alert and oriented. * Bilateral pneumonia likely aspiration component-continue antibiotic coverage and de-escalate in 24 hours * Multiple falls ongoing physical therapy/OT eval for gait and safety training * Parkinsonism continue levodopa carbidopa/ropinirole * History of DJD continue oxycodone/baclofen * Bipolar disorder on lithium * Anticoagulation on Pradaxa * Anxiety disorder on sertraline * Full code Plan * de-escalate antibiotics in 24 hours * Aggressive physical therapy * Pre-existing medical condition management as above * Possible transfer to SNF in 48 hours if continues to improve clinically Current Visit: Yes Medical - PN: Qual - VTE Deep Vein Thrombosis/Pulmonary Embolism Present on Admission: No
[2017-11-08] MEDS: POTASSIUM CHLORIDE 10 MEQ TABLET PO SCH ×2 (07:39→17:37)
[2017-11-08] MEDS: OMEPRAZOLE 20 MG CAPSULE PO SCH (07:39)
[2017-11-08] MEDS: DABIGATRAN ETEXILATE MESYLATE 75 MG CAPSULE PO SCH ×2 (08:57→19:46)
[2017-11-08] MEDS: LITHIUM CARBONATE 150 MG CAPSULE PO SCH ×2 (08:58→20:04)
[2017-11-08] MEDS: PRIMIDONE 50 MG TABLET PO SCH ×2 (08:58→19:46)
[2017-11-08] MEDS: PROPRANOLOL 10 MG TABLET PO SCH ×2 (08:58→19:45)
[2017-11-08] MEDS: CARBIDOPA/LEVODOPA 25/100 TABLET PO SCH ×3 (09:01→19:46)
[2017-11-08] MEDS: GABAPENTIN 300 MG CAPSULE PO SCH ×3 (09:01→19:47)
[2017-11-08] MEDS: SERTRALINE 50 MG TABLET PO SCH (09:01)
[2017-11-08] MEDS: OXYBUTYNIN CHLORIDE 5 MG TAB.XL.24H PO SCH (09:01)
[2017-11-08] MEDS: FUROSEMIDE 20 MG TABLET PO SCH (09:02)
[2017-11-08] MEDS: rOPINIRole 0.25 MG TABLET PO SCH ×2 (09:02→19:46)
[2017-11-08] MEDS: DOCUSATE SODIUM 100 MG CAPSULE PO SCH ×2 (09:02→19:48)
[2017-11-08] MEDS: MULTIVIT,THER IRON,CA,FA & MIN 1 TABLET PO SCH (09:02)
[2017-11-08] MEDS: busPIRone 5 MG TABLET PO SCH ×3 (09:02→19:47)
[2017-11-08] MEDS: NITROFURANTOIN SR 100 MG CAPSULE PO SCH ×2 (09:02→19:46)
[2017-11-08] MEDS: BUDESONIDE 0.5 MG/2 ML AMPUL.NEB NEB SCH ×2 (09:57→19:48)
[2017-11-08] MEDS: IPRATROPIUM/ALBUTEROL 3 ML AMPUL.NEB NEB PRN (09:57)
[2017-11-08] MEDS: Fluticasone/Vilanterol [Breo Ellipta] 100-25 Mcg Inhaler INH SCH (10:32)
[2017-11-08] MEDS: FLUTICASONE PROPIONATE SPRAY.NAS NS SCH ×2 (10:32→20:06)
[2017-11-08] MEDS: NYSTATIN CRM 1 DOSE TUBE TOPICAL SCH ×3 (10:32→19:48)
[2017-11-08] MEDS: ONDANSETRON 4 MG/2 ML VIAL IV PRN (12:21)
[2017-11-08] MEDS: DAPTOmycin 500 MG VIAL IV SCH (13:24)
[2017-11-08] MEDS: BACLOFEN 10 MG TABLET PO SCH (19:47)
[2017-11-08] MEDS: SENNOSIDES/DOCUSATE SODIUM 1 TAB TABLET PO SCH (19:48)
[2017-11-09] MEDS: PIPERACILLIN SODIUM/TAZOBACTAM 3.375 GM in DEXTROSE 5% IN WATER 50 ML IV SCH ×3 (05:36→17:22)
[2017-11-09] MEDS: 0.9 % SODIUM CHLORIDE 10 ML SYRINGE IV SCH ×2 (05:36→13:50)
[2017-11-09 06:05] LABS: ALT/SGPT < 5 U/l (0-40); Albumin/Globulin Ratio 1.1 (1.0-2.3); Alkaline Phosphatase 61 U/L (39-117); Bilirubin,Direct < 0.2 mg/dL (0.0-0.3); Blood Urea Nitrogen 6 mg/dl (8-23); Gamma Glutamyl Transpeptidase 42 U/L (5-36); Magnesium 1.9 mg/dL (1.6-2.5); Uric Acid 3.6 mg/dL (2.5-8.0)
[2017-11-09] MEDS: OMEPRAZOLE 20 MG CAPSULE PO SCH (07:14)
[2017-11-09] MEDS: POTASSIUM CHLORIDE 10 MEQ TABLET PO SCH ×2 (07:14→16:57)
[2017-11-09] MEDS: NITROFURANTOIN SR 100 MG CAPSULE PO SCH ×2 (08:58→20:03)
[2017-11-09] MEDS: GABAPENTIN 300 MG CAPSULE PO SCH ×3 (08:58→20:01)
[2017-11-09] MEDS: busPIRone 5 MG TABLET PO SCH ×3 (08:58→20:03)
[2017-11-09] MEDS: SERTRALINE 50 MG TABLET PO SCH (08:58)
[2017-11-09] MEDS: FUROSEMIDE 20 MG TABLET PO SCH (08:58)
[2017-11-09] MEDS: CARBIDOPA/LEVODOPA 25/100 TABLET PO SCH ×3 (08:58→20:03)
[2017-11-09] MEDS: DABIGATRAN ETEXILATE MESYLATE 75 MG CAPSULE PO SCH ×2 (08:58→20:03)
[2017-11-09] MEDS: DOCUSATE SODIUM 100 MG CAPSULE PO SCH ×2 (08:58→20:04)
[2017-11-09] MEDS: PRIMIDONE 50 MG TABLET PO SCH ×2 (08:59→20:03)
[2017-11-09] MEDS: OXYBUTYNIN CHLORIDE 5 MG TAB.XL.24H PO SCH (08:59)
[2017-11-09] MEDS: rOPINIRole 0.25 MG TABLET PO SCH ×2 (08:59→20:03)
[2017-11-09] MEDS: PROPRANOLOL 10 MG TABLET PO SCH ×2 (08:59→20:04)
[2017-11-09] MEDS: MULTIVIT,THER IRON,CA,FA & MIN 1 TABLET PO SCH (08:59)
[2017-11-09] MEDS ORDERED: LEVOFLOXACIN 750 MG/150 ML BAG IV SCH (09:00)
[2017-11-09] MEDS: Fluticasone/Vilanterol [Breo Ellipta] 100-25 Mcg Inhaler INH SCH (09:10)
[2017-11-09] MEDS: NYSTATIN CRM 1 DOSE TUBE TOPICAL SCH ×3 (09:14→20:04)
[2017-11-09] MEDS: FLUTICASONE PROPIONATE SPRAY.NAS NS SCH ×2 (09:14→20:04)
[2017-11-09] MEDS: LITHIUM CARBONATE 150 MG CAPSULE PO SCH ×2 (09:44→20:01)
[2017-11-09] MEDS: BUDESONIDE 0.5 MG/2 ML AMPUL.NEB NEB SCH ×2 (10:18→21:32)
--- NOTE | 2017-11-09 10:54 | Internal Med Progress Note ---
Medical - PN: Subj Patient information: Note initiated : 11/09/17 at 10:52 am Service Date, if different from initiated Date: [] Patient: Celia Villasenor 77 y/o F admitted on 11/07/17 for Fever, Neck Pain/ Mental Status Change, UTI, PNA. Chief Complaint: [] Interval history: 11/0729-01-ozin-old assisted care living resident admitted with complicated UTI and mental status change and multiple falls. Started on broad antibiotic coverage. Await cultures. Admitted as inpatient. 11/08- patient clinically improved. Responding well to antibiotics.stable labs and hemodynamics. Saturating 94% on room air. Afebrile. Tolerating physical therapy and diet. 11/09: Patient seen examined, improving clinically, eating breakfast this AM, has no complaints, Urine culture is VRE, on contact isolation and daptomycin started, await final sensitivity. Pertinent ROS: Denies headache, dizziness Denies chest pain, palpitations Denies cough or shortness of breath Denies abdominal pain, nausea or vomiting. - Constitutional Vitals: Vital Signs Temp Pulse Resp BP Pulse Ox 98.6 F 67 16 112/65 93 11/09/17 06:43 11/09/17 03:43 11/09/17 10:22 11/09/17 06:43 11/09/17 06:43 Period Temp Pulse Resp BP Sys/[place]inton Pulse Ox Last 24 Hr 97.6 F-99.2 F 66-73 16-20 112-128/58-74 91-95 Intake and Output 11/08/17 11/09/17 11/09/17 21:59 05:59 13:59 Intake Total 350 / 350 850 / 850 170 / 170 Output Total 300 / 300 700 / 700 800 / 800 Balance 50 / 50 150 / 150 -630 / -630 Weight 170 lb Intake & Output: Intake & Output 11/08/17 11/09/17 11/09/17 21:59 05:59 13:59 Intake Total 350 / 350 850 / 850 170 / 170 Output Total 300 / 300 700 / 700 800 / 800 Balance 50 / 50 150 / 150 -630 / -630 Weight 170 lb Intake: IV 50 / 50 50 / 50 50 / 50 Zosyn 3.375 gm In Dextrose 5% 50 / 50 50 / 50 50 / 50 in Water 50 ml @ 100 mls/hr IV Q6H [facility] Rx#:[id number] Oral 300 / 300 800 / 800 120 / 120 Output: Void Amount 700 / 700 800 / 800 Urine/Stool Mix 300 / 300 Other: Meal Dinner Breakfast Percent of Meal Consumed 75% 100% # Voids 1 1 # Bowel Movements 1 Exam: Constitutional; Afebrile, cooperative, alert, not in distress. Eyes- No icterus, , No periorbital swelling Ears- Ext ear normal, hearing normal to conversation. Neck- Midline trachea, supple Respiratory system: Air Entry equal on both sides, No crackles or wheezing, no rhonchi. CVS- Rate rhythm regular, S1,S2 heard, no gallop, no rub. Abdomen- Soft nontender abdomen, no organomegaly, no tenderness, no guarding or rigidity, MEDICAL REGISTRAR- AOOx3, moving all extremities, no gross focal deficit noted. Medical - PN: Obj Da - Labs CBC & Chem 7: 11/08/17 05:04 11/09/17 04:17 Labs: Abnormal Lab Results 11/09/17 11/08/17 11/08/17 04:17 05:04 05:04 RBC 3.54 L Hgb 10.7 L Hct 32.5 L Gran % Lymph % (Auto) Lymph # (Auto) Lymphocytes % 14 L Carbon Dioxide 21 L 20 L BUN 6 L Creatinine Glucose 139 H 137 H Calcium 8.4 L 8.4 L Phosphorus 2.1 L 2.5 L GGT 42 H 43 H NT-Pro-B Natriuret Pep Total Protein 5.7 L Albumin 3.0 L Urine Protein Urine Ketones Urine Nitrate Ur Leukocyte Esterase Urine RBC Urine WBC 11/07/17 11/07/17 11/07/17 09:47 08:26 08:26 RBC 3.82 L Hgb 11.4 L Hct 35.0 L Gran % 78.7 H Lymph % (Auto) 10.8 L Lymph # (Auto) 1.0 L Lymphocytes % Carbon Dioxide BUN Creatinine 1.2 H Glucose 174 H Calcium Phosphorus GGT NT-Pro-B Natriuret Pep 1180.0 H Total Protein Albumin Urine Protein 30 A Urine Ketones 5/tr A Urine Nitrate Pos A Ur Leukocyte Esterase 500 A Urine RBC 3 H Urine WBC > 182 H Meds: Medications Acetaminophen (Tylenol) 650 mg PO Q4-6HP PRN PRN Reason: PAIN/FEVER > 101 Last Admin: 11/08/17 20:27 Dose: 650 mg Albuterol/Ipratropium (Duoneb) 3 ml NEB Q4HP PRN PRN Reason: Shortness Of Breath Last Admin: 11/08/17 09:57 Dose: 3 ml Baclofen (Lioresal) 5 mg PO HS [facility] Last Admin: 11/08/17 19:47 Dose: 5 mg Budesonide (Pulmicort) 0.5 mg NEB Q12 [facility] Last Admin: 11/09/17 10:18 Dose: 0.5 mg Buspirone HCl (Buspar) 10 mg PO TID [facility] Last Admin: 11/09/17 08:58 Dose: 10 mg Carbidopa/Levodopa (Sinemet 25/100) 2 tab PO TID [facility] Last Admin: 11/09/17 08:58 Dose: 2 tab Dabigatran (Pradaxa) 150 mg PO BID [facility] Last Admin: 11/09/17 08:58 Dose: 150 mg Daptomycin (Cubicin) 310 mg 4 mg/kg (310 mg) IV DAILY [facility] Last Admin: 11/08/17 13:24 Dose: 310 mg Docusate Sodium (Colace) 100 mg PO BID [facility] Last Admin: 11/09/17 08:58 Dose: 100 mg Fluticasone Propionate (Flonase) 1 spray NS BID [facility] Last Admin: 11/09/17 09:14 Dose: Not Given Furosemide (Lasix) 20 mg PO DAILY [facility] Last Admin: 11/09/17 08:58 Dose: 20 mg Gabapentin (Neurontin) 900 mg PO TID [facility] Last Admin: 11/09/17 08:58 Dose: 900 mg Guaifenesin/Codeine Phosphate (Robitussin Ac) 10 ml PO Q4HP PRN PRN Reason: Cough Levofloxacin (Levaquin) 750 mg in 150 mls @ 100 mls/hr IV Q48H [facility] Last Admin: 11/09/17 08:57 Dose: 100 mls/hr Magnesium Sulfate (Magnesium Sulfate) 2 gm in 50 mls @ 50 mls/hr IV UD PRN PRN Reason: MG = or < 1.7 Last Infusion: 11/08/17 10:31 Dose: Infused Piperacillin Sod/Tazobactam (Sod 3.375 gm/ Dextrose) 50 mls @ 100 mls/hr IV Q6H [facility] Last Infusion: 11/09/17 06:06 Dose: Infused Iron Carb/Multivit/[place]/Folic Acid (Multivitamin W/Minerals) 1 tab PO DAILY [facility] Last Admin: 11/09/17 08:59 Dose: 1 tab [place] Carbonate ([place] Carbonate) 150 mg PO BID [facility] Last Admin: 11/09/17 09:44 Dose: 150 mg Nitrofurantoin Macrocrystals (Macrobid) 100 mg PO BID [facility] Last Admin: 11/09/17 08:58 Dose: 100 mg Nystatin (Nystatin Crm) 1 dose TOPICAL TID [facility] Last Admin: 11/09/17 09:14 Dose: Not Given Omeprazole (Prilosec) 20 mg PO ACB [facility] Last Admin: 11/09/17 07:14 Dose: 20 mg Ondansetron HCl (Zofran) 4 mg IV Q4-6HP PRN PRN Reason: Nausea And Vomiting Last Admin: 11/08/17 12:21 Dose: 4 mg Ondansetron HCl (Zofran Odt) 4 mg SL Q6HP PRN PRN Reason: Nausea Oxybutynin Chloride (Ditropan Xl) 5 mg PO DAILY [facility] Last Admin: 11/09/17 08:59 Dose: 5 mg Oxycodone HCl (Roxicodone) 10 mg PO QIDP PRN PRN Reason: Pain Last Admin: 11/08/17 22:21 Dose: 10 mg Fluticasone/Vilanterol [Breo Ellipta] 100-25 Mcg Inhaler 1 dose INH DAILY [facility] Last Admin: 11/09/17 09:10 Dose: 1 dose Umeclidinium [place] [Incruse Ellipta] 62.5 Mcg Inhaler 1 dose INH DAILY [facility] Last Admin: 11/09/17 09:12 Dose: 1 dose Potassium Chloride (Klor-Con) 40 meq PO DAILYP PRN PRN Reason: K+ < 3.5 Last Admin: 11/08/17 08:58 Dose: 40 meq Potassium Chloride (Kdur) 10 meq PO BIDCC [facility] Last Admin: 11/09/17 07:14 Dose: 10 meq Primidone (Mysoline) 100 mg PO BID [facility] Last Admin: 11/09/17 08:59 Dose: 100 mg Propranolol HCl (Inderal) 20 mg PO BID [facility] Last Admin: 11/09/17 08:59 Dose: 20 mg Ropinirole HCl (Requip) 0.5 mg PO BID [facility] Last Admin: 11/09/17 08:59 Dose: 0.5 mg Senna/Docusate Sodium (Senna Plus Tablet) 1 tab PO HS [facility] Last Admin: 11/08/17 19:48 Dose: Not Given Sertraline HCl (Zoloft) 50 mg PO DAILY [facility] Last Admin: 11/09/17 08:58 Dose: 50 mg Sodium Chloride (Saline Flush) 10 ml IV Q8 [facility] Last Admin: 11/09/17 05:36 Dose: 10 ml Trazodone HCl (Desyrel) 50 mg PO HSP PRN PRN Reason: Insomnia Medical - PN: A/P - Time Spent With Patient Total time spent is greater than 50% in coordination of care (as documented) at patient's floor/unit and/or counseling patient: - Narrative A/P Narrative: A/P Complicated UTI: VRE UTI as per culture, await final sensitivities, on daptomycin for now. Chauncey Pneumoina, : was on levofloxa and zosyn, d/c levoflox for now, clinically much improved Weakness/ Debility: due to infection, Ongoing Therapy. Parkinsonism: Stable on levodopa and carbidopa. COPD: No wheezing, continhe home inhalers. Bipolar disorder on lithium continue same, Chr anticoagulation for PE, on pradaxa continue same Anxiety: stable, on sertraline, neuropathy: on gabapentin 900mg tid full code DVT on oral anticoagulatino Medical - PN: Qual - VTE Deep Vein Thrombosis/Pulmonary Embolism Present on Admission: No
[2017-11-09] MEDS: DAPTOmycin 500 MG VIAL IV SCH (11:52)
[2017-11-09] MEDS: SENNOSIDES/DOCUSATE SODIUM 1 TAB TABLET PO SCH (20:04)
[2017-11-09] MEDS: BACLOFEN 10 MG TABLET PO SCH (20:04)
[2017-11-10] MEDS: 0.9 % SODIUM CHLORIDE 10 ML SYRINGE IV SCH ×4 (00:14→20:25)
[2017-11-10] MEDS: PIPERACILLIN SODIUM/TAZOBACTAM 3.375 GM in DEXTROSE 5% IN WATER 50 ML IV SCH ×3 (00:15→11:46)
[2017-11-10] MEDS: IPRATROPIUM/ALBUTEROL 3 ML AMPUL.NEB NEB PRN ×2 (01:31→20:45)
[2017-11-10 06:25] LABS: ALT/SGPT < 5 U/l (0-40); Albumin 2.9 gm/dL (3.2-5.2); Albumin/Globulin Ratio 0.9 (1.0-2.3); Alkaline Phosphatase 62 U/L (39-117); Bilirubin,Direct < 0.2 mg/dL (0.0-0.3); Blood Urea Nitrogen 4 mg/dl (8-23); Gamma Glutamyl Transpeptidase 37 U/L (5-36); Magnesium 1.8 mg/dL (1.6-2.5); Uric Acid 3.1 mg/dL (2.5-8.0)
[2017-11-10] MEDS: POTASSIUM CHLORIDE 10 MEQ TABLET PO SCH ×2 (07:03→16:47)
[2017-11-10] MEDS: OMEPRAZOLE 20 MG CAPSULE PO SCH (07:03)
[2017-11-10] MEDS: CARBIDOPA/LEVODOPA 25/100 TABLET PO SCH ×3 (08:14→20:14)
[2017-11-10] MEDS: OXYBUTYNIN CHLORIDE 5 MG TAB.XL.24H PO SCH (08:14)
[2017-11-10] MEDS: LITHIUM CARBONATE 150 MG CAPSULE PO SCH ×2 (08:14→20:16)
[2017-11-10] MEDS: DAPTOmycin 500 MG VIAL IV SCH (08:14)
[2017-11-10] MEDS: DABIGATRAN ETEXILATE MESYLATE 75 MG CAPSULE PO SCH ×2 (08:14→20:14)
[2017-11-10] MEDS: FUROSEMIDE 20 MG TABLET PO SCH (08:14)
[2017-11-10] MEDS: MULTIVIT,THER IRON,CA,FA & MIN 1 TABLET PO SCH (08:15)
[2017-11-10] MEDS: busPIRone 5 MG TABLET PO SCH ×3 (08:15→20:15)
[2017-11-10] MEDS: rOPINIRole 0.25 MG TABLET PO SCH ×2 (08:15→20:15)
[2017-11-10] MEDS: PROPRANOLOL 10 MG TABLET PO SCH ×2 (08:15→20:14)
[2017-11-10] MEDS: GABAPENTIN 300 MG CAPSULE PO SCH ×3 (08:15→20:15)
[2017-11-10] MEDS: PRIMIDONE 50 MG TABLET PO SCH ×2 (08:15→20:14)
[2017-11-10] MEDS: SERTRALINE 50 MG TABLET PO SCH (08:15)
[2017-11-10] MEDS: NITROFURANTOIN SR 100 MG CAPSULE PO SCH ×2 (08:15→20:16)
[2017-11-10] MEDS: NYSTATIN CRM 1 DOSE TUBE TOPICAL SCH ×3 (08:20→20:23)
[2017-11-10] MEDS: DOCUSATE SODIUM 100 MG CAPSULE PO SCH ×2 (08:20→20:36)
[2017-11-10] MEDS: FLUTICASONE PROPIONATE SPRAY.NAS NS SCH ×2 (08:20→20:23)
[2017-11-10] MEDS: Fluticasone/Vilanterol [Breo Ellipta] 100-25 Mcg Inhaler INH SCH (08:32)
[2017-11-10] MEDS: oxyCODONE HCL 5 MG TABLET PO PRN ×3 (08:33→20:16)
[2017-11-10] MEDS: BUDESONIDE 0.5 MG/2 ML AMPUL.NEB NEB SCH ×2 (09:10→20:45)
[2017-11-10] MEDS: LACTATED RINGERS 1,000 ML IV SCH (10:23)
[2017-11-10] MEDS: VANCOMYCIN ORAL SOL 1,000 MG/10 ML BOTTLE PO SCH ×3 (10:53→20:23)
--- NOTE | 2017-11-10 12:37 | Internal Med Progress Note ---
Medical - PN: Subj Patient information: Note initiated : 11/10/17 at 12:34 pm Service Date, if different from initiated Date: [] Patient: Celia Villasenor 77 y/o F admitted on 11/07/17 for Fever, Neck Pain/ Mental Status Change, UTI, PNA. Chief Complaint: [] Interval history: 11/0708-96-qsdb-old assisted care living resident admitted with complicated UTI and mental status change and multiple falls. Started on broad antibiotic coverage. Await cultures. Admitted as inpatient. 11/08- patient clinically improved. Responding well to antibiotics.stable labs and hemodynamics. Saturating 94% on room air. Afebrile. Tolerating physical therapy and diet. 11/09: Patient seen examined, improving clinically, eating breakfast this AM, has no complaints, Urine culture is VRE, on contact isolation and daptomycin started, await final sensitivity. 11/10 Pt seen examined, lying comfortabl in bed but not feeling so good, had one episode of diarrhea, Cdiff is positive, started on IVF and PO vanco. microbiology still pending. She denies any complaints. Labs reviewed, Pertinent ROS: Denies headache, dizziness Denies chest pain, palpitations Denies cough or shortness of breath Denies abdominal pain, nausea or vomiting positive for diarrhea . - Constitutional Vitals: Vital Signs Temp Pulse Resp BP Pulse Ox 98.1 F 77 18 134/65 93 11/10/17 11:18 11/10/17 09:11 11/10/17 11:18 11/10/17 11:18 11/10/17 11:18 Period Temp Pulse Resp BP Sys/[place] Pulse Ox Last 24 Hr 97.1 F-99 F 60-77 16-20 110-140/60-84 92-96 Intake and Output 11/09/17 11/10/17 11/10/17 21:59 05:59 13:59 Intake Total 50 / 50 375 / 375 50 / 50 Output Total 401 / 401 650 / 650 200 / 200 Balance -351 / -351 -275 / -275 -150 / -150 Weight 158 lb 8 oz Intake & Output: Intake & Output 11/09/17 11/10/17 11/10/17 21:59 05:59 13:59 Intake Total 50 / 50 375 / 375 50 / 50 Output Total 401 / 401 650 / 650 200 / 200 Balance -351 / -351 -275 / -275 -150 / -150 Weight 158 lb 8 oz Intake: IV 50 / 50 50 / 50 50 / 50 Zosyn 3.375 gm In Dextrose 5% 50 / 50 50 / 50 50 / 50 in Water 50 ml @ 100 mls/hr IV Q6H [facility] Rx#:[id number] Oral 325 / 325 Output: Void Amount 400 / 400 650 / 650 200 / 200 Stool 1 / Other: # Voids 1 1 1 # Bowel Movements 1 Exam: Constitutional; Afebrile, cooperative, alert, not in distress. Eyes- No icterus, , No periorbital swelling Ears- Ext ear normal, Neck- Midline trachea, supple Respiratory system: Air Entry equal on both sides, No crackles or wheezing, no rhonchi. CVS- Rate rhythm regular, S1,S2 heard, no gallop, no rub. Abdomen- Soft nontender abdomen, no organomegaly, no tenderness, no guarding or rigidity, MECHANICAL SYSTEMS DESIGN ENGINEER- AOOx3, moving all extremities, no gross focal deficit noted. Medical - PN: Obj Da - Labs CBC & Chem 7: 11/08/17 05:04 11/10/17 04:38 Labs: Abnormal Lab Results 11/10/17 11/09/17 11/08/17 04:38 04:17 05:04 RBC 3.54 L Hgb 10.7 L Hct 32.5 L Lymphocytes % 14 L Carbon Dioxide 20 L 21 L BUN 4 L 6 L Glucose 169 H 139 H Calcium 8.4 L 8.4 L Phosphorus 2.3 L 2.1 L GGT 37 H 42 H Lactate Dehydrogenase 287 H Total Protein 5.7 L Albumin 2.9 L 3.0 L Albumin/Globulin Ratio 0.9 L 11/08/17 05:04 RBC Hgb Hct Lymphocytes % Carbon Dioxide 20 L BUN Glucose 137 H Calcium 8.4 L Phosphorus 2.5 L GGT 43 H Lactate Dehydrogenase Total Protein Albumin Albumin/Globulin Ratio Meds: Medications Acetaminophen (Tylenol) 650 mg PO Q4-6HP PRN PRN Reason: PAIN/FEVER > 101 Last Admin: 11/08/17 20:27 Dose: 650 mg Albuterol/Ipratropium (Duoneb) 3 ml NEB Q4HP PRN PRN Reason: Shortness Of Breath Last Admin: 11/10/17 01:31 Dose: 3 ml Baclofen (Lioresal) 5 mg PO HS [facility] Last Admin: 11/09/17 20:04 Dose: 5 mg Budesonide (Pulmicort) 0.5 mg NEB Q12 [facility] Last Admin: 11/10/17 09:10 Dose: 0.5 mg Buspirone HCl (Buspar) 10 mg PO TID [facility] Last Admin: 11/10/17 08:15 Dose: 10 mg Carbidopa/Levodopa (Sinemet 25/100) 2 tab PO TID [facility] Last Admin: 11/10/17 08:14 Dose: 2 tab Dabigatran (Pradaxa) 150 mg PO BID [facility] Last Admin: 11/10/17 08:14 Dose: 150 mg Daptomycin (Cubicin) 310 mg 4 mg/kg (310 mg) IV DAILY [facility] Last Admin: 11/10/17 08:14 Dose: 310 mg Docusate Sodium (Colace) 100 mg PO BID [facility] Last Admin: 11/10/17 08:20 Dose: Not Given Fluticasone Propionate (Flonase) 1 spray NS BID [facility] Last Admin: 11/10/17 08:20 Dose: Not Given Furosemide (Lasix) 20 mg PO DAILY [facility] Last Admin: 11/10/17 08:14 Dose: 20 mg Gabapentin (Neurontin) 900 mg PO TID [facility] Last Admin: 11/10/17 08:15 Dose: 900 mg Guaifenesin/Codeine Phosphate (Robitussin Ac) 10 ml PO Q4HP PRN PRN Reason: Cough Magnesium Sulfate (Magnesium Sulfate) 2 gm in 50 mls @ 50 mls/hr IV UD PRN PRN Reason: MG = or < 1.7 Last Infusion: 11/08/17 10:31 Dose: Infused Piperacillin Sod/Tazobactam (Sod 3.375 gm/ Dextrose) 50 mls @ 100 mls/hr IV Q6H [facility] Last Admin: 11/10/17 11:46 Dose: 100 mls/hr Lactated Ringer's (Lactated Ringers) 1,000 mls @ 75 mls/hr IV .[id number] [facility] Stop: 11/12/17 02:14 Last Admin: 11/10/17 10:23 Dose: 75 mls/hr Iron Carb/Multivit/Hotel Service Manager/Folic Acid (Multivitamin W/Minerals) 1 tab PO DAILY [facility] Last Admin: 11/10/17 08:15 Dose: 1 tab [place] Carbonate ([place] Carbonate) 150 mg PO BID [facility] Last Admin: 11/10/17 08:14 Dose: 150 mg Nitrofurantoin Macrocrystals (Macrobid) 100 mg PO BID [facility] Last Admin: 11/10/17 08:15 Dose: 100 mg Nystatin (Nystatin Crm) 1 dose TOPICAL TID [facility] Last Admin: 11/10/17 08:20 Dose: Not Given Omeprazole (Prilosec) 20 mg PO ACB [facility] Last Admin: 11/10/17 07:03 Dose: 20 mg Ondansetron HCl (Zofran) 4 mg IV Q4-6HP PRN PRN Reason: Nausea And Vomiting Last Admin: 11/08/17 12:21 Dose: 4 mg Ondansetron HCl (Zofran Odt) 4 mg SL Q6HP PRN PRN Reason: Nausea Oxybutynin Chloride (Ditropan Xl) 5 mg PO DAILY [facility] Last Admin: 11/10/17 08:14 Dose: 5 mg Oxycodone HCl (Roxicodone) 10 mg PO QIDP PRN PRN Reason: Pain Last Admin: 11/10/17 08:33 Dose: 10 mg Fluticasone/Vilanterol [Breo Ellipta] 100-25 Mcg Inhaler 1 dose INH DAILY [facility] Last Admin: 11/10/17 08:32 Dose: 1 dose Umeclidinium [place] [Incruse Ellipta] 62.5 Mcg Inhaler 1 dose INH DAILY [facility] Last Admin: 11/10/17 08:33 Dose: 1 dose Potassium Chloride (Klor-Con) 40 meq PO DAILYP PRN PRN Reason: K+ < 3.5 Last Admin: 11/08/17 08:58 Dose: 40 meq [facility] Admin: 11/10/17 07:03 Dose: 10 meq Primidone (Mysoline) 100 mg PO BID [facility] Last Admin: 11/10/17 08:15 Dose: 100 mg Propranolol HCl (Inderal) 20 mg PO BID [facility] Last Admin: 11/10/17 08:15 Dose: 20 mg Ropinirole HCl (Requip) 0.5 mg PO BID [facility] Last Admin: 11/10/17 08:15 Dose: 0.5 mg Senna/Docusate Sodium (Senna Plus Tablet) 1 tab PO HS [facility] Last Admin: 11/09/17 20:04 Dose: Not Given Sertraline HCl (Zoloft) 50 mg PO DAILY [facility] Last Admin: 11/10/17 08:15 Dose: 50 mg Sodium Chloride (Saline Flush) 10 ml IV Q8 [facility] Last Admin: 11/10/17 05:36 Dose: 10 ml Trazodone HCl (Desyrel) 50 mg PO HSP PRN PRN Reason: Insomnia Vancomycin HCl (Vancomycin Oral [place]) 250 mg PO QID [facility] Last Admin: 11/10/17 10:53 Dose: 250 mg Medical - PN: A/P - Time Spent With Patient Total time spent is greater than 50% in coordination of care (as documented) at patient's floor/unit and/or counseling patient: - Narrative A/P Narrative: A/P Complicated UTI: VRE UTI as per culture, await final sensitivities, on daptomycin for now. cdiff diarrhea: IV fljuids to prevent dehydration. PO vancomycin started. Chauncey Pneumoina, : was on levofloxa and zosyn, d/c levoflox for now, clinically much improved, microbiology neg. Weakness/ Debility: due to infection, Ongoing Therapy. Parkinsonism: Stable on levodopa and carbidopa. COPD: No wheezing, continue home inhalers. Bipolar disorder on lithium continue same, Chr anticoagulation for PE, on pradaxa continue same Anxiety: stable, on sertraline, neuropathy: on gabapentin 900mg tid full code DVT on oral anticoagulation Medical - PN: Qual - VTE Deep Vein Thrombosis/Pulmonary Embolism Present on Admission: No
[2017-11-10] MEDS: ERTAPENEM 1 GM in 0.9 % SODIUM CHLORIDE 50 ML IV SCH (16:42)
[2017-11-10] MEDS: BACLOFEN 10 MG TABLET PO SCH (20:14)
[2017-11-10] MEDS: SENNOSIDES/DOCUSATE SODIUM 1 TAB TABLET PO SCH (20:36)
[2017-11-11] MEDS: LACTATED RINGERS 1,000 ML IV SCH ×2 (00:58→11:31)
[2017-11-11] MEDS: 0.9 % SODIUM CHLORIDE 10 ML SYRINGE IV SCH ×3 (05:08→20:32)
[2017-11-11 06:49] LABS: ALT/SGPT < 5 U/l (0-40); Albumin/Globulin Ratio 1.1 (1.0-2.3); Alkaline Phosphatase 59 U/L (39-117); Bilirubin,Direct < 0.2 mg/dL (0.0-0.3); Blood Urea Nitrogen 3 mg/dl (8-23); Gamma Glutamyl Transpeptidase 36 U/L (5-36); Magnesium 1.6 mg/dL (1.6-2.5); Uric Acid 3.2 mg/dL (2.5-8.0)
[2017-11-11] MEDS: POTASSIUM CHLORIDE 10 MEQ TABLET PO SCH ×2 (07:10→16:58)
[2017-11-11] MEDS: OMEPRAZOLE 20 MG CAPSULE PO SCH (07:10)
[2017-11-11] MEDS: BUDESONIDE 0.5 MG/2 ML AMPUL.NEB NEB SCH (08:12)
[2017-11-11] MEDS ORDERED: MAGNESIUM SULFATE 2 GM/50 ML BAG IV ONE (08:27)
[2017-11-11] MEDS ORDERED: POTASSIUM CHLORIDE 20 MEQ PACKET PO ONE (08:27)
[2017-11-11 08:40] LABS: Basophils # (Auto) 0 K/mcL (0.0-0.3); Basophils % (Auto) 0.4 % (0.0-2.0); Eosinophils # (Auto) 0.1 K/mcL (0.0-0.7); Eosinophils % (Auto) 2.4 % (0.0-7.0); Lymphocytes # (Auto) 1.4 K/mcL (1.5-4.8); Lymphocytes % (Auto) 26.7 % (15.5-49.0); Mean Corpuscular HGB Conc 32.9 g/dL (31.0-36.0); Monocytes # (Auto) 0.4 K/mcL (0.1-0.9); Monocytes % (Auto) 8.5 % (1.0-12.0); Platelet Count 261 K/mcL (140-440); RBC 3.32 M/mcL (4.00-5.20); Red Cell Distribution Width 14.3 % (11.5-14.5)
[2017-11-11] MEDS: Fluticasone/Vilanterol [Breo Ellipta] 100-25 Mcg Inhaler INH SCH (08:57)
[2017-11-11] MEDS: ERTAPENEM 1 GM in 0.9 % SODIUM CHLORIDE 50 ML IV SCH (08:59)
[2017-11-11] MEDS: DAPTOmycin 500 MG VIAL IV SCH (09:00)
[2017-11-11] MEDS: NITROFURANTOIN SR 100 MG CAPSULE PO SCH ×2 (09:10→20:31)
[2017-11-11] MEDS: CARBIDOPA/LEVODOPA 25/100 TABLET PO SCH ×3 (09:10→20:30)
[2017-11-11] MEDS: DABIGATRAN ETEXILATE MESYLATE 75 MG CAPSULE PO SCH ×2 (09:10→20:30)
[2017-11-11] MEDS: rOPINIRole 0.25 MG TABLET PO SCH ×2 (09:10→20:30)
[2017-11-11] MEDS: GABAPENTIN 300 MG CAPSULE PO SCH ×3 (09:10→20:30)
[2017-11-11] MEDS: busPIRone 5 MG TABLET PO SCH ×3 (09:11→20:30)
[2017-11-11] MEDS: PROPRANOLOL 10 MG TABLET PO SCH ×2 (09:11→20:30)
[2017-11-11] MEDS: OXYBUTYNIN CHLORIDE 5 MG TAB.XL.24H PO SCH (09:11)
[2017-11-11] MEDS: PRIMIDONE 50 MG TABLET PO SCH ×2 (09:11→20:29)
[2017-11-11] MEDS: MULTIVIT,THER IRON,CA,FA & MIN 1 TABLET PO SCH (09:11)
[2017-11-11] MEDS: SERTRALINE 50 MG TABLET PO SCH (09:11)
[2017-11-11] MEDS: FUROSEMIDE 20 MG TABLET PO SCH (09:11)
[2017-11-11] MEDS: DOCUSATE SODIUM 100 MG CAPSULE PO SCH ×2 (09:11→20:31)
[2017-11-11] MEDS: FLUTICASONE PROPIONATE SPRAY.NAS NS SCH ×2 (09:15→20:32)
[2017-11-11] MEDS: NYSTATIN CRM 1 DOSE TUBE TOPICAL SCH ×3 (09:15→20:32)
[2017-11-11] MEDS: VANCOMYCIN ORAL SOL 1,000 MG/10 ML BOTTLE PO SCH ×4 (09:16→20:28)
[2017-11-11] MEDS: LITHIUM CARBONATE 150 MG CAPSULE PO SCH ×2 (09:30→20:28)
[2017-11-11] MEDS: MAGNESIUM OXIDE 400 MG TABLET PO SCH ×2 (11:24→20:31)
--- NOTE | 2017-11-11 19:49 | Internal Med Progress Note ---
Medical - PN: Subj Patient information: Note initiated : 11/11/17 at 7:47 pm Service Date, if different from initiated Date: [] Patient: Celia Villasenor 77 y/o F admitted on 11/07/17 for Fever, Neck Pain/ Mental Status Change, UTI, PNA. Chief Complaint: [] Interval history: [id number] assisted care living resident admitted with complicated UTI and mental status change and multiple falls. Started on broad antibiotic coverage. Await cultures. Admitted as inpatient. 11/08- patient clinically improved. Responding well to antibiotics.stable labs and hemodynamics. Saturating 94% on room air. Afebrile. Tolerating physical therapy and diet. 11/09: Patient seen examined, improving clinically, eating breakfast this AM, has no complaints, Urine culture is VRE, on contact isolation and daptomycin started, await final sensitivity. 11/10 Pt seen examined, lying comfortabl in bed but not feeling so good, had one episode of diarrhea, Cdiff is positive, started on IVF and PO vanco. microbiology still pending. She denies any complaints. Labs reviewed, 11/11 patient seen examined, comfortable in bed, tolerating po diet well, no acute complaints, she was ready for D/C today but not able to be discharged due to insurance issues. Her labs are stable. Pertinent ROS: Denies headache, dizziness Denies chest pain, palpitations Denies cough or shortness of breath Denies abdominal pain, nausea or vomiting. - Constitutional Vitals: Vital Signs Temp Pulse Resp BP Pulse Ox 98.8 F 75 24 H 124/70 97 11/11/17 19:44 11/11/17 19:44 11/11/17 19:44 11/11/17 19:44 11/11/17 19:44 Period Temp Pulse Resp BP Sys/[place] Pulse Ox Last 24 Hr 97.8 F-98.8 F 60-76 16-24 119-136/68-78 93-97 Intake and Output 11/11/17 11/11/17 11/11/17 05:59 13:59 21:59 Intake Total 1550 / 1550 1000 / 1000 Output Total 800 / 800 1300 / 1300 Balance 750 / 750 -1300 / -1300 1000 / 1000 Weight 155 lb Patient Weight 11/12/17 05:59 Weight 155 lb Intake & Output: Intake & Output 11/11/17 11/11/17 11/11/17 05:59 13:59 21:59 Intake Total 1550 / 1550 1000 / 1000 Output Total 800 / 800 1300 / 1300 Balance 750 / 750 -1300 / -1300 1000 / 1000 Weight 155 lb Intake: IV 1050 / 1050 INVanz 1 GM In Sodium Chloride 50 / 50 0.9% 50 ml @ 100 mls/hr IV Q24H [facility] Rx#:[id number] Lactated Ringers 1,000 ml @ 75 1000 / 1000 mls/hr IV .[id number] [facility] Rx#: [id number] Oral 500 / 500 1000 / 1000 Output: Void Amount 800 / 800 500 / 500 Urine/Stool Mix 800 / 800 Other: Meal Lunch Dinner Percent of Meal Consumed 100% 25% Feeding Ability Assist with Tray Set Up Independent # Voids 1 Exam: Constitutional; Afebrile, cooperative, alert, not in distress. Eyes- No icterus, , No periorbital swelling Ears- Ext ear normal, Neck- Midline trachea, supple Respiratory system: Air Entry equal on both sides, No crackles or wheezing, no rhonchi. CVS- Rate rhythm regular, S1,S2 heard, no gallop, no rub. 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 Medical - PN: Obj Da - Labs CBC & Chem 7: 11/11/17 07:37 11/11/17 04:40 Labs: Abnormal Lab Results 11/11/17 11/11/17 11/10/17 07:37 04:40 04:38 RBC 3.32 L Hgb 9.9 L Hct 30.2 L Lymph # (Auto) 1.4 L Carbon Dioxide 21 L 20 L BUN 3 L 4 L Glucose 146 H 169 H Calcium 8.2 L 8.4 L Phosphorus 2.1 L 2.3 L GGT 37 H Lactate Dehydrogenase 287 H Total Protein 5.8 L Albumin 3.0 L 2.9 L Albumin/Globulin Ratio 0.9 L 11/09/17 04:17 RBC Hgb Hct Lymph # (Auto) Carbon Dioxide 21 L BUN 6 L Glucose 139 H Calcium 8.4 L Phosphorus 2.1 L GGT 42 H Lactate Dehydrogenase Total Protein 5.7 L Albumin 3.0 L Albumin/Globulin Ratio Meds: Medications Acetaminophen (Tylenol) 650 mg PO Q4-6HP PRN PRN Reason: PAIN/FEVER > 101 Last Admin: 11/08/17 20:27 Dose: 650 mg Albuterol/Ipratropium (Duoneb) 3 ml NEB Q4HP PRN PRN Reason: Shortness Of Breath Last Admin: 11/10/17 20:45 Dose: 3 ml Baclofen (Lioresal) 5 mg PO HS [facility] Last Admin: 11/10/17 20:14 Dose: 5 mg Buspirone HCl (Buspar) 10 mg PO TID [facility] Last Admin: 11/11/17 15:42 Dose: 10 mg Carbidopa/Levodopa (Sinemet 25/100) 2 tab PO TID [facility] Last Admin: 11/11/17 15:43 Dose: 2 tab Dabigatran (Pradaxa) 150 mg PO BID [facility] Last Admin: 11/11/17 09:10 Dose: 150 mg Daptomycin (Cubicin) 310 mg 4 mg/kg (310 mg) IV DAILY [facility] Last Admin: 11/11/17 09:00 Dose: 310 mg Docusate Sodium (Colace) 100 mg PO BID [facility] Last Admin: 11/11/17 09:11 Dose: Not Given Fluticasone Propionate (Flonase) 1 spray NS BID [facility] Last Admin: 11/11/17 09:15 Dose: Not Given Furosemide (Lasix) 20 mg PO DAILY [facility] Last Admin: 11/11/17 09:11 Dose: 20 mg Gabapentin (Neurontin) 900 mg PO TID [facility] Last Admin: 11/11/17 15:43 Dose: 900 mg Guaifenesin/Codeine Phosphate (Robitussin Ac) 10 ml PO Q4HP PRN PRN Reason: Cough Magnesium Sulfate (Magnesium Sulfate) 2 gm in 50 mls @ 50 mls/hr IV UD PRN PRN Reason: MG = or < 1.7 Last Infusion: 11/08/17 10:31 Dose: Infused Lactated Ringer's (Lactated Ringers) 1,000 mls @ 75 mls/hr IV .[id number] [facility] Stop: 11/12/17 02:14 Last Admin: 11/11/17 11:31 Dose: Not Given Ertapenem 1 gm/ Sodium (Chloride) 50 mls @ 100 mls/hr IV Q24H [facility] Last Admin: 11/11/17 08:59 Dose: 100 mls/hr Iron Carb/Multivit/Rate Clerk Passenger/Folic Acid (Multivitamin W/Minerals) 1 tab PO DAILY [facility] Last Admin: 11/11/17 09:11 Dose: 1 tab Herreid Carbonate (Herreid Carbonate) 150 mg PO BID [facility] Last Admin: 11/11/17 09:30 Dose: 150 mg Magnesium Oxide (Magnesium Oxide) 400 mg PO BID [facility] Last Admin: 11/11/17 11:24 Dose: 400 mg Nitrofurantoin Macrocrystals (Macrobid) 100 mg PO BID [facility] Last Admin: 11/11/17 09:10 Dose: 100 mg Nystatin (Nystatin Crm) 1 dose TOPICAL TID [facility] Last Admin: 11/11/17 14:15 Dose: Not Given Omeprazole (Prilosec) 20 mg PO ACB [facility] Last Admin: 11/11/17 07:10 Dose: 20 mg Ondansetron HCl (Zofran) 4 mg IV Q4-6HP PRN PRN Reason: Nausea And Vomiting Last Admin: 11/08/17 12:21 Dose: 4 mg Ondansetron HCl (Zofran Odt) 4 mg SL Q6HP PRN PRN Reason: Nausea Oxybutynin Chloride (Ditropan Xl) 5 mg PO DAILY [facility] Last Admin: 11/11/17 09:11 Dose: 5 mg Oxycodone HCl (Roxicodone) 10 mg PO QIDP PRN PRN Reason: Pain Last Admin: 11/10/17 20:16 Dose: 10 mg Fluticasone/Vilanterol [Breo Ellipta] 100-25 Mcg Inhaler 1 dose INH DAILY [facility] Last Admin: 11/11/17 08:57 Dose: 1 dose Umeclidinium [place] [Incruse Ellipta] 62.5 Mcg Inhaler 1 dose INH DAILY [facility] Last Admin: 11/11/17 08:57 Dose: 1 dose Potassium Chloride (Klor-Con) 40 meq PO DAILYP PRN PRN Reason: K+ < 3.5 Last Admin: 11/08/17 08:58 Dose: 40 meq Potassium Chloride (Kdur) 10 meq PO BIDCOX BRANSON Last Admin: 11/11/17 16:58 Dose: 10 meq Primidone (Mysoline) 100 mg PO BID [facility] Last Admin: 11/11/17 09:11 Dose: 100 mg Propranolol HCl (Inderal) 20 mg PO BID [facility] Last Admin: 11/11/17 09:11 Dose: 20 mg Ropinirole HCl (Requip) 0.5 mg PO BID [facility] Last Admin: 11/11/17 09:10 Dose: 0.5 mg Senna/Docusate Sodium (Senna Plus Tablet) 1 tab PO HS [facility] Last Admin: 11/10/17 20:36 Dose: Not Given Sertraline HCl (Zoloft) 50 mg PO DAILY [facility] Last Admin: 11/11/17 09:11 Dose: 50 mg Sodium Chloride (Saline Flush) 10 ml IV Q8 [facility] Last Admin: 11/11/17 13:59 Dose: Not Given Trazodone HCl (Desyrel) 50 mg PO HSP PRN PRN Reason: Insomnia Last Admin: 11/10/17 20:16 Dose: 50 mg Vancomycin HCl (Vancomycin Oral Alicia) 250 mg PO QID [facility] Last Admin: 11/11/17 16:59 Dose: 250 mg Medical - PN: A/P - Time Spent With Patient Total time spent is greater than 50% in coordination of care (as documented) at patient's floor/unit and/or counseling patient: - Narrative A/P Narrative: A/P Complicated UTI: VRE UTI as per culture, on daptomycin, plan to d/c on fosphomycin for total of 3 doses. cdiff diarrhea: On PO vancomycin. Chauncey Pneumoina, : was on levofloxa and zosyn, d/c levoflox for now on meropenum now,, clinically much improved, microbiology neg. day 5 of abx today. Weakness/ Debility: due to infection, Ongoing Therapy. plan for SNF placement. Parkinsonism: Stable on levodopa and carbidopa. COPD: No wheezing, continue home inhalers. Bipolar disorder on lithium continue same, Chr anticoagulation for PE, on pradaxa continue same Anxiety: stable, on sertraline, neuropathy: on gabapentin 900mg tid full code DVT on oral anticoagulation Medical - PN: Qual - VTE Deep Vein Thrombosis/Pulmonary Embolism Present on Admission: No
[2017-11-11] MEDS: BACLOFEN 10 MG TABLET PO SCH (20:31)
[2017-11-11] MEDS: SENNOSIDES/DOCUSATE SODIUM 1 TAB TABLET PO SCH (20:31)
[2017-11-12] MEDS: oxyCODONE HCL 5 MG TABLET PO PRN ×2 (01:01→09:16)
[2017-11-12 05:29] LABS: Basophils # (Auto) 0 K/mcL (0.0-0.3); Basophils % (Auto) 0.1 % (0.0-2.0); Eosinophils # (Auto) 0.1 K/mcL (0.0-0.7); Eosinophils % (Auto) 1.8 % (0.0-7.0); Granulocytes % (Auto) 68.2 % (38.0-78.0); Lymphocytes # (Auto) 1.4 K/mcL (1.5-4.8); Lymphocytes % (Auto) 22.6 % (15.5-49.0); Mean Cell Volume 92.3 fL (80.0-100.0); Mean Corpuscular HGB Conc 32.6 g/dL (31.0-36.0); Mean Corpuscular Hemoglobin 30.1 pg (26.0-34.0); Monocytes # (Auto) 0.5 K/mcL (0.1-0.9); Monocytes % (Auto) 7.3 % (1.0-12.0); Platelet Count 276 K/mcL (140-440); RBC 3.52 M/mcL (4.00-5.20); Red Cell Distribution Width 14.2 % (11.5-14.5)
[2017-11-12 05:58] LABS: ALT/SGPT < 5 U/l (0-40); Albumin 3.4 gm/dL (3.2-5.2); Albumin/Globulin Ratio 1.2 (1.0-2.3); Alkaline Phosphatase 68 U/L (39-117); Bilirubin,Direct < 0.2 mg/dL (0.0-0.3); Blood Urea Nitrogen 3 mg/dl (8-23); Gamma Glutamyl Transpeptidase 44 U/L (5-36); Uric Acid 3.2 mg/dL (2.5-8.0)
[2017-11-12] MEDS: 0.9 % SODIUM CHLORIDE 10 ML SYRINGE IV SCH (07:52)
[2017-11-12] MEDS: OMEPRAZOLE 20 MG CAPSULE PO SCH (07:53)
[2017-11-12] MEDS: FUROSEMIDE 20 MG TABLET PO SCH (09:10)
[2017-11-12] MEDS: POTASSIUM CHLORIDE 10 MEQ TABLET PO SCH (09:10)
[2017-11-12] MEDS: MAGNESIUM OXIDE 400 MG TABLET PO SCH (09:10)
[2017-11-12] MEDS: GABAPENTIN 300 MG CAPSULE PO SCH (09:10)
[2017-11-12] MEDS: DABIGATRAN ETEXILATE MESYLATE 75 MG CAPSULE PO SCH (09:11)
[2017-11-12] MEDS: PRIMIDONE 50 MG TABLET PO SCH (09:13)
[2017-11-12] MEDS: SERTRALINE 50 MG TABLET PO SCH (09:13)
[2017-11-12] MEDS: OXYBUTYNIN CHLORIDE 5 MG TAB.XL.24H PO SCH (09:14)
[2017-11-12] MEDS: rOPINIRole 0.25 MG TABLET PO SCH (09:14)
[2017-11-12] MEDS: PROPRANOLOL 10 MG TABLET PO SCH (09:14)
[2017-11-12] MEDS: CARBIDOPA/LEVODOPA 25/100 TABLET PO SCH (09:16)
[2017-11-12] MEDS: busPIRone 5 MG TABLET PO SCH (09:16)
[2017-11-12] MEDS: MULTIVIT,THER IRON,CA,FA & MIN 1 TABLET PO SCH (09:16)
[2017-11-12] MEDS: NITROFURANTOIN SR 100 MG CAPSULE PO SCH (09:17)
[2017-11-12] MEDS: DOCUSATE SODIUM 100 MG CAPSULE PO SCH (09:17)
[2017-11-12] MEDS: FLUTICASONE PROPIONATE SPRAY.NAS NS SCH (09:17)
[2017-11-12] MEDS: LITHIUM CARBONATE 150 MG CAPSULE PO SCH (09:17)
[2017-11-12] MEDS: NYSTATIN CRM 1 DOSE TUBE TOPICAL SCH (09:17)
[2017-11-12] MEDS: VANCOMYCIN ORAL SOL 1,000 MG/10 ML BOTTLE PO SCH (09:20)
[2017-11-12] MEDS: DAPTOmycin 500 MG VIAL IV SCH (09:28)
[2017-11-12] MEDS: ERTAPENEM 1 GM in 0.9 % SODIUM CHLORIDE 50 ML IV SCH (09:28)
[2017-11-12] MEDS: Fluticasone/Vilanterol [Breo Ellipta] 100-25 Mcg Inhaler INH SCH (09:32)
--- NOTE | 2017-11-12 11:39 | Discharge Summary ---
Medical - DS: Prov Patient information: Note initiated : 11/12/17 at 11:37 am Service Date, if different from initiated Date: [] Patient: Celia Villasenor 77 y/o F admitted on 11/07/17 for Fever, Neck Pain/ Mental Status Change, UTI, PNA. Chief Complaint: [] Date of admission: 11/07/17 12:48 Discharge date: 11/12/17 Admitting clinician: Vito Tuttle Discharging clinician: Nathalie Paredes Medical - DS: Meds - Discharge Medications Prescriptions: Fosfomycin Tromethamine [Monurol] 3 gm PO Q3D #3 packet Vancomycin [Vancocin] 250 mg PO QID #48 cap Active and Home Medications: Home Medications Acetaminophen [Tylenol] 650 mg PO Q4HP PRN 11/04/17 [History Confirmed 11/07/17 Last Taken 10/31/17] Albuterol Sulfate [Ventolin] 1 - 2 puff INH Q4HP PRN 11/04/17 [History Confirmed 11/07/17 Last Taken Unknown] Baclofen [Lioresal] 5 mg PO HS 11/04/17 [History Confirmed 11/07/17 Last Taken 11/06/17] Carbidopa/Levodopa [Carbidopa-Levo 25-100 mg Odt] 2 each PO TID 11/04/17 [ History Confirmed 11/07/17 Last Taken 11/06/17] Carboxymethylcellulose Sodium [Refresh Celluvisc] 1 each OU Q2HP PRN 11/04/17 [ History Confirmed 11/07/17 Last Taken 11/07/17] Dabigatran Etexilate Mesylate [Pradaxa] 150 mg PO BID 11/04/17 [History Confirmed 11/07/17 Last Taken 11/06/17] Gabapentin [Neurontin] 900 mg PO TID 11/04/17 [History Confirmed 11/07/17 Last Taken 11/06/17] [place] Carbonate 150 mg PO BID 11/04/17 [History Confirmed 11/07/17 Last Taken 11/06/17] Nystatin Crm 1 dose TOPICAL TID 11/04/17 [History Confirmed 11/07/17 Last Taken 11/06/17] Omeprazole [PriLOSEC] 20 mg PO ACB 11/04/17 [History Confirmed 11/07/17 Last Taken 11/06/17] Ondansetron HCl [Zofran] 4 mg PO Q6HP PRN 11/04/17 [History Confirmed 11/07/17 Last Taken 11/06/17] Oxybutynin Chloride [Oxybutynin Chloride ER] 5 mg PO DAILY 11/04/17 [History Confirmed 11/07/17 Last Taken 11/06/17] Primidone [Mysoline] 100 mg PO DAILY 11/04/17 [History Confirmed 11/07/17 Last Taken 11/06/17] Propranolol [Inderal] 20 mg PO BID 11/04/17 [History Confirmed 11/07/17 Last Taken 11/06/17] Sertraline HCl [Zoloft] 50 mg PO DAILY 11/04/17 [History Confirmed 11/07/17 Last Taken 11/06/17] Umeclidinium [place] [Incruse Ellipta] 62.5 mcg INH DAILY 11/04/17 [History Confirmed 11/07/17 Last Taken 11/06/17] busPIRone HCL [Buspirone HCl] 10 mg PO TID 11/04/17 [History Confirmed 11/07/17 Last Taken 11/06/17] oxyCODONE HCL [Oxycodone HCl] 1 tab PO QIDP 11/04/17 [History Confirmed Last Taken 11/06/17] rOPINIRole HCL [Requip] 0.5 mg PO BID 11/04/17 [History Confirmed 11/07/17 Last Taken 11/06/17] Ergocalciferol (Vitamin D2) [Vitamin D2] 50,000 units PO Q15D 11/07/17 [History Confirmed 11/07/17 Last Taken 10/29/17] Fluticasone Propionate [Flonase] 1 spray INTRANASAL BID 11/07/17 [History Confirmed 11/07/17 Last Taken 11/06/17] Fluticasone/Vilanterol [Breo Ellipta 100-25 Mcg INH] 1 puff INH DAILY 11/07/17 [ History Confirmed 11/07/17 Last Taken 11/06/17] Furosemide [Lasix] 1 tab PO DAILY 11/07/17 [History Confirmed 11/07/17 Last Taken 11/06/17] Nitrofurantoin Macrocrystal [Nitrofurantoin] 1 cap PO BID 11/07/17 [History Confirmed 11/07/17 Last Taken 11/06/17] Potassium Chloride [Kdur] 1 tab PO BID 11/07/17 [History Confirmed 11/07/17 Last Taken 11/06/17] Primidone [Mysoline] 100 mg PO HS 11/07/17 [History Confirmed 11/07/17 Last Taken 11/06/17] Medical - DS: Hosp Hospital course: The patient is a 77-year-old who resides in assisted living facility at [place] and was transferred by EMS to the ER after she was found confused, weak, altered, lethargic, along with fever. The patient has not been able to function over the last 24 hours and has been laying on bed. She has had multiple recent falls due to weakness and has notable bruise on the head and arms. Initial workup in the ER was significant for significant pyuria along with bilateral chest infiltrates suggestive of pneumonia. The patient was admitted to the hospital for management of pneumonia and UTI Pneumonia: Treated with broad spectrum antibiotics, blood cx is neg, she responded well to treatment, she has completed 5 days of IV antibiotics while in the hospital UTI: SHe has enterococcus UTI and entrobacter UTi, both of which are multi drug resistant, initially treated with zosyn, later switched to meropenum and daptomycin. the patient has responded well to treatment. Given the MDR status of her organisms, will use fosphomycin 3gms every 3 days for 3 doses to complete the course of treatment. Cdiff diarrhea: The patient had developed diarrhea during the course of hospitalization, treated with Po vancomycin, will need additional 12 days of treatment. PO vanco 250mg qid x 12 days. The rest of the stay in the hospital was uneventful, no changes made for her chr medication conditions, At the time of discharge she is able to tolerate po diet well, ambulate with help of PT, and has no acute complaints. The patient was weak from hospital stay and we tried to get the patient placed in SNF for further management. However the insurance company declined SNF placement. She will be discharged back to Assisted living facility with Therapies set up for ongoing rehab. Discharge diagnosis: Pnemonia, UTI, - Time Spent with Patient Total time spent providing and/or coordinating discharge services: Greater than 30 minutes Medical - DS: Exam - Constitutional Vitals: Vital Signs Temp Pulse Resp BP Pulse Ox 11/12/17 07:16 97.1 F 18 130/68 97 11/12/17 03:55 97.8 F 76 24 H 136/84 95 11/11/17 23:14 99.4 F H 82 24 H 134/82 96 11/11/17 19:44 98.8 F 75 24 H 124/70 97 11/11/17 16:00 98.1 F 20 119/72 93 11/11/17 12:00 97.9 F 71 18 122/68 94 Intake and Output 11/11/17 11/12/17 11/12/17 21:59 05:59 13:59 Intake Total 1120 / 1120 175 / 175 Output Total 1450 / 1450 800 / 800 Balance 1120 / 1120 -1275 / -1275 -800 / -800 Intake: Oral 1120 / 1120 175 / 175 Output: Void Amount 1450 / 1450 800 / 800 Other: Meal Dinner Percent of Meal Consumed 25% Feeding Ability Independent # Bowel Movements 1 Weight 155 lb Additional comments: Constitutional; Afebrile, cooperative, alert, not in distress. Eyes- No icterus, , No periorbital swelling Ears- Ext ear normal, Neck- Midline trachea, supple Respiratory system: Air Entry equal on both sides, No crackles or wheezing, no rhonchi. CVS- Rate rhythm regular, S1,S2 heard, no gallop, no rub. 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 Medical - DS: Data Labs on day of discharge: Labs from last 24 hours 11/12/17 11/12/17 04:05 04:05 WBC 6.2 RBC 3.52 L Hgb 10.6 L Hct 32.5 L MCV 92.3 MCH 30.1 MCHC 32.6 RDW 14.2 Plt Count 276 MPV 8.1 Gran % 68.2 Lymph % (Auto) 22.6 [place] % (Auto) 7.3 Eos % (Auto) 1.8 Baso % (Auto) 0.1 Gran # 4.2 Lymph # (Auto) 1.4 L [place] # (Auto) 0.5 Eos # (Auto) 0.1 Baso # (Auto) 0 Sodium 140 Potassium 3.7 Chloride 104 Carbon Dioxide 24 Anion Gap 12.0 BUN 3 L Creatinine 0.9 GFR Calculation 61 Glucose 144 H Uric Acid 3.2 Calcium 8.6 Phosphorus 2.0 L Magnesium 2.0 Total Bilirubin 0.3 Direct Bilirubin < 0.2 GGT 44 H AST 25 ALT < 5 Alkaline Phosphatase 68 Lactate Dehydrogenase 151 Total Protein 6.2 Albumin 3.4 Globulin 2.8 Albumin/Globulin Ratio 1.2 Triglycerides 102 Medical - DS: A/P - Patient/Caregiver Discharge Instructions Activity: as per physical therapy Diet: Regular Diet (Recommend: Regular textures and thin liquids. NO STRAWS) Additional Instructions: You were admitted to the hospital for UTI, and Pneumonia You responded well to treatment but unfortunately developed Diarrhea due to Cdiff You completed the course of antibiotics for pneumonia while in the hospital YOu need 3 more doses of antibiotic for UTI, please take this medication ( fosphomycin) as prescribed. You also need to take oral vancomycin four times a day for the diarrhea(cdiff infection) If your symptoms worsen, you have chest pain, fever, or any other concerning symptom please go to the ER Follow up with PCP in 1 week I have not made any changes to your chronic home medications, please take them as before. - Follow up Plan Disposition: Home Health Service Prognosis: Fair Rehab Potential: Fair I certify that the patient requires SNF services: No Overall status at discharge: patient is progressing back to baseline Medical - DS: Qual - VTE Deep Vein Thrombosis/Pulmonary Embolism Present on Admission: No
== END 2017-11-12 12:48 | disposition home health service (06) | DRG 178 ==
LOC: ED 08:10 → MEDSUR 12:47
PROVIDERS: ADMIT Internal Medicine; ATTEND Internal Medicine

== ENCOUNTER 2018-04-07 08:16 | Observation (INO) ==
--- NOTE | 2018-04-07 09:23 | Cat Scan Report ---
CLINICAL INFORMATION: Trauma on anticoagulation COMPARISON: 11/07/2017 TECHNIQUE: 2.5 mm helical slices were obtained in the skull base to vertex. Following reconstruction, axial reformatted images were reviewed at bone and parenchymal windows. The exam was performed using radiation dose optimization techniques including, but not limited to, automated exposure control, adjustment of the mA and/or kV according to patient size and use of iterative reconstruction technique. FINDINGS: The ventricles, sulci, fissures, and cisterns remain symmetrically enlarged compatible with mild age-related atrophy. There is no subdural hemorrhage or extra-axial fluid collection appreciated. Patchy chronic ischemic changes in the deep cerebral white matter, typical for age, are stable. There is no intracerebral hemorrhage, mass effect, edema or other acute finding. Bone windows show no fracture or acute posttraumatic change. Bilateral ethmoid sinusitis as improved considerably with subtotal opacification confined to the anterior ethmoid air cells. A 1 cm polyp is seen in the left maxillary sinus IMPRESSION: Mild atrophy and chronic ischemic changes in deep cerebral white matter. No intracerebral hemorrhage or posttraumatic change Markedly improved ethmoid sinusitis - now mild. Interpreted and Authenticated by: Tristian Arrieta 04/07/18
[2018-04-07] MEDS ORDERED: HYDROmorphone 2 MG/ML VIAL IV PRN ×2 (10:00→18:39)
[2018-04-07] MEDS ORDERED: fentaNYL 100 MCG/2 ML VIAL IV PRN (10:06)
--- NOTE | 2018-04-07 10:27 | XRay Report ---
CLINICAL INFORMATION: Trauma COMPARISON: None. FINDINGS: There is a Ferguson C oblique mildly comminuted fracture through the distal femoral metadiaphysis. The proximal fragment is displaced 1 cm medially and 5 mm anteriorly with respect to the distal fragment. An oblique fracture through the posterior malleolus and transverse fracture medial malleolus are both noted. The entire tibial plafond is displaced 12 mm medially with respect to the talar dome. Ankle mortise is markedly incongruent and there is marked periarticular soft tissue swelling. IMPRESSION: Trimalleolar fracture/dislocation of the ankle Interpreted and Authenticated by: Tristian Arrieta 04/07/18
--- NOTE | 2018-04-07 10:29 | XRay Report ---
CLINICAL INFORMATION: Trauma COMPARISON: None. FINDINGS: Sacroiliac and hip joints are normal in width and alignment without arthritic change. There is no fracture or osseous abnormality. Soft tissues are unremarkable. IMPRESSION: Normal exam. Interpreted and Authenticated by: Tristian Arrieta 04/07/18
--- NOTE | 2018-04-07 10:29 | XRay Report ---
CLINICAL INFORMATION: Trauma COMPARISON: None. FINDINGS: No fracture identified. There appears be mild diffuse osteoporosis. 3-4 small calcifications in the tibiofemoral joint are likely loose bodies and/or calcifications within the menisci. The patellofemoral and tibial femoral joints show only mild degeneration IMPRESSION: No evidence of fracture Interpreted and Authenticated by: Tristian Arrieta 04/07/18
--- NOTE | 2018-04-07 11:30 | Emergency Department Note ---
Fall HPI - General Chief Complaint: Fall Stated Complaint: Fall from standing. Time Seen by Provider: 04/07/18 09:00 Source: patient, EMS Mode of arrival: EMS - History of Present Illness HPI Narrative: This 77-year-old female from [place] describes walking with her walker today when her leg collapsed and she fell causing significant pain primarily in the right lower extremity at the ankle. She wonders if it is broken. She hit her head on the cover on the way down with some subsequent mild head discomfort. She reports that this is the first time that she is fallen. She is NOT on chronic anticoagulation medication per her knowledge, admitting she doesn't know her meds well. However, in her chart is dabigatran ( Pradaxa) but uncertain what this would be for. She appears to be a good historian but there is dementia listed or indicated as well. Her right foot feels cold. REVIEW OF SYSTEMS: Denies fever. She has chills and sweats off and on. Denies chest pain, palpitations. Denies cough, shortness of breath. Denies abdominal pain, nausea, vomiting, diarrhea, hematochezia. Denies dysuria. Denies back pain and neck pain. Denies headaches, weakness, dizziness. Denies anxiety, depression. - Related Data Home Medications Medication Instructions Recorded Confirmed Acetaminophen [Tylenol] 650 mg PO Q4HP PRN 11/04/17 04/07/18 Albuterol Sulfate [Ventolin] 1 - 2 puff INH Q4HP PRN 11/04/17 04/07/18 Baclofen [Lioresal] 5 mg PO HS 11/04/17 04/07/18 Carbidopa/Levodopa [Carbidopa-Levo 2 each PO TID 11/04/17 04/07/18 25-100 mg Odt] Dabigatran Etexilate Mesylate 150 mg PO BID 11/04/17 04/07/18 [Pradaxa] Gabapentin [Neurontin] 900 mg PO TID 11/04/17 04/07/18 [place] Carbonate 150 mg PO BID 11/04/17 04/07/18 Omeprazole [Prilosec] 20 mg PO ACB 11/04/17 04/07/18 Oxybutynin Chloride [Oxybutynin 5 mg PO DAILY 11/04/17 04/07/18 Chloride ER] Propranolol [Inderal] 20 mg PO BID 11/04/17 04/07/18 Umeclidinium [place] [Incruse 62.5 mcg INH DAILY 11/04/17 04/07/18 Ellipta] busPIRone HCL [Buspirone HCl] 10 mg PO TID 11/04/17 04/07/18 oxyCODONE HCL [Oxycodone HCl] 1 tab PO QIDP 11/04/17 04/07/18 rOPINIRole HCL [Requip] 0.5 mg PO BID 11/04/17 04/07/18 Ergocalciferol (Vitamin D2) 50,000 units PO Q15D 11/07/17 04/07/18 [Vitamin D2] Fluticasone Propionate [Flonase] 1 spray INTRANASAL BID 11/07/17 04/07/18 Fluticasone/Vilanterol [Breo 1 puff INH DAILY 11/07/17 04/07/18 Ellipta 100-25 Mcg INH] Primidone [Mysoline] 100 mg PO HS 11/07/17 04/07/18 Memantine HCl [Namenda] 10 mg PO BID 04/02/18 04/07/18 SUMAtriptan SUCCINATE [Imitrex] 50 mg PO PRN PRN 04/02/18 04/07/18 Breo Ellipta 100-25 Mcg INH 1 puff INH DAILY 04/07/18 04/07/18 Fexofenadine HCl [Aller-Fex] 180 mg PO DAILY 04/07/18 04/07/18 Fluticasone/Vilanterol [Breo 1 inh IH DAILY 04/07/18 04/07/18 Ellipta 100-25 Mcg INH] Ondansetron HCl [Zofran ODT] 4 mg SL Q4-6HP PRN 04/07/18 04/07/18 Previous Rx's Medication Instructions Recorded Hydrocodone/APAP 7.5/325Mg [[place] 1 - 2 tab PO Q4-6HP PRN #65 tab 04/04/18 7.5-325Mg] Methocarbamol [Robaxin] 750 mg PO QIDP PRN #30 tab 04/04/18 Allergies Allergy/AdvReac Type Severity Reaction Status Date / Time lactose Allergy Verified 04/04/18 11:59 promethazine Allergy Verified 04/04/18 11:59 Fall PMH - Past Medical History Medical history: Reports: asthma, COPD, dementia, GERD, hypertension, pulmonary embolus, other (Parkinsons. Pneumonia. Peripheral neuropathy. C difficile colitis. Complicated UTI. DENIES Osteoporosis.). Denies: cancer, coronary artery disease, CVA, myocardial infarction, seizures, thyroid disease, TIA Surgical history ED: Reports: orthopedic, other (right wrist 6-2018.) Psychiatric history: Reports: anxiety, bipolar Family history: Reports: no significant family history, non-contributory - Social History smoking status: Former smoker Alcohol use: Reports: Rarely (3-4 times per year line.) Physical Exam Limitations: no limitations General appearance: alert, in distress (With any movement or touch to the right lower extremity.) Head: normocephalic, other (Has a laceration on the right posterior parietal area. It is not gapping. Is 2.2 cm in length with some fresh blood.) Eye: Present: EOMI. Absent: scleral icterus ENT: mucous membranes moist Neck: Present: trachea midline. Absent: lymphadenopathy, thyromegaly Respiratory: Present: normal lung sounds bilaterally. Absent: respiratory distress, wheezes, stridor, accessory muscle use, prolonged expiratory phase Cardiovascular: Present: regular rate, normal rhythm. Absent: systolic murmur, diastolic murmur Abdominal: Present: soft. Absent: distention, tenderness, guarding, rebound, rigidity, organomegaly, mass Extremities: Present: pretibial edema (Trace bilateral), other (Right ankle is externally rotated. Dorsalis pedal pulses 2-3/4. Color is normal. Sensation is very sensitive to touch.) Neurological: Present: alert Psychiatric: Present: normal affect, other (Some seriousness with eyes closed quite a bit of the time but does open and did discuss and focuses appropriately and well.) Skin: Present: warm, dry Course Vital Signs Temperature 98.3 F 04/07/18 08:17 Pulse Rate 71 04/07/18 08:17 Respiratory Rate 18 04/07/18 08:17 Blood Pressure 124/84 04/07/18 08:17 Pulse Oximetry (%) 91 04/07/18 08:17 Temperature 98.3 F 04/07/18 08:17 Pulse Rate 80 04/07/18 16:49 Respiratory Rate 18 04/07/18 16:49 Blood Pressure 163/77 04/07/18 16:46 Pulse Oximetry (%) 97 04/07/18 16:49 Fall - MDM Narrative Medical decision making narrative: 11:25 AM Trimalleolar fx right ankle. Knee and hip without fracture. Call in to Dr. Thompson. 12:30 PM I spoke with Dr. Leblanc who requested that patient have a reduction under sedation here in the emergency room followed by splinting and follow-up in his office in 7-10 days with pain control. 2:15 PM anesthesia was called and they assisted with conscious sedation using Versed, ketamine, propofol. Reduction occurred with the ankle returning to normal anatomic alignment with a fairly sudden and loud pop and slight grind at the lateral malleolus. Post reduction x-rays demonstrate near anatomic alignment and patient will be splinted. Both before and after the reduction she had normal color and appearance with a bounding dorsalis pedal pulse. Patient had complained of coldness to her foot but had excellent sensation to touch. She will be returned to [place] with pain medication and cautions regarding constipation and follow-up with Dr. Leblanc in 7-10 days. 2:50 PM Cristina unable to retake patient indicating that she is more than one assist because of how weak she was previously (including 3 days ago right wrist surgery ), now nonweight bearing on the right foot, etc. Yarn Inspector looking into options. 3:30 PM approximately Patient will be admitted observation unless labs are abnormal. Dr. Tuttle kindly accepted care of this patient. Long-term arrangements for her care and pain control will be needed. - Lab Data Lab results reviewed: Yes I reviewed the patient's lab results. Result diagrams: 04/07/18 16:04 04/07/18 16:04 Lab Results 04/07/18 04/07/18 04/07/18 Range/Units 16:00 16:04 16:04 WBC 8.6 (4.5-11.0) K/mcL RBC 3.74 L (4.00-5.20) M/mcL Hgb 11.0 L (12.0-15.0) g/dL Hct 33.7 L (36.0-48.0) % MCV 90.1 (80.0-100.0) fL MCH 29.4 (26.0-34.0) pg MCHC 32.6 (31.0-36.0) g/dL RDW 13.8 (11.5-14.5) % Plt Count 183 (140-440) K/mcL MPV 7.8 (7.4-10.4) fL Gran % 73.7 (38.0-78.0) % Lymph % (Auto) 17.3 (15.5-49.0) % [place] % (Auto) 7.5 (1.0-12.0) % Eos % (Auto) 1.5 (0.0-7.0) % Baso % (Auto) 0 (0.0-2.0) % Gran # 6.3 (1.8-8.0) K/mcL Lymph # (Auto) 1.5 (1.5-4.8) K/mcL [place] # (Auto) 0.6 (0.1-0.9) K/mcL Eos # (Auto) 0.1 (0.0-0.7) K/mcL Baso # (Auto) 0 (0.0-0.3) K/mcL Sodium 138 (133-145) mmol/L Potassium 4.7 (3.3-5.1) mmol/L Chloride 103 (96-108) mmol/L Carbon Dioxide 24 (22-30) mmol/L Anion Gap 11.0 (8-16) BUN 14 (8-23) mg/dl Creatinine 1.2 H (0.6-1.1) mg/dl GFR Calculation 43 Glucose 180 H (70-105) mg/dL Calcium 8.5 L (8.6-10.4) mg/dl Total Bilirubin 0.4 (0.0-1.0) mg/dL AST 14 (0-37) U/l ALT < 5 (0-40) U/l Alkaline Phosphatase 62 (39-117) U/L Troponin T (0-0.03) ng/ml Total Protein 6.6 (5.9-8.4) gm/dL Albumin 3.1 L (3.2-5.2) gm/dL Globulin 3.5 (2.2-3.7) gm/dL Albumin/Globulin Ratio 0.9 L (1.0-2.3) Urine Color Yellow Urine Appearance Clear Urine pH 6.0 (5.0-9.0) Ur Specific [place] 1.013 (1.000-1.035) Urine Protein Neg (NEG) mg/dL Urine Glucose (UA) Negative (NEG) mg/dL Urine Ketones Neg (NEG) mg/dL Urine Occult Blood Neg (<0.03) mg/dL Urine Nitrate Neg (NEG) Urine Bilirubin Neg (NEG) mg/dL Urine Urobilinogen Neg (NEG) mg/dL Ur Leukocyte Esterase Neg (NEG) /uL Ur Culture Indicated? No 04/07/18 Range/Units 16:04 WBC (4.5-11.0) K/mcL RBC (4.00-5.20) M/mcL Hgb (12.0-15.0) g/dL Hct (36.0-48.0) % MCV (80.0-100.0) fL MCH (26.0-34.0) pg MCHC (31.0-36.0) g/dL RDW (11.5-14.5) % Plt Count (140-440) K/mcL MPV (7.4-10.4) fL Gran % (38.0-78.0) % Lymph % (Auto) (15.5-49.0) % [place] % (Auto) (1.0-12.0) % Eos % (Auto) (0.0-7.0) % Baso % (Auto) (0.0-2.0) % Gran # (1.8-8.0) K/mcL Lymph # (Auto) (1.5-4.8) K/mcL [place] # (Auto) (0.1-0.9) K/mcL Eos # (Auto) (0.0-0.7) K/mcL Baso # (Auto) (0.0-0.3) K/mcL Sodium (133-145) mmol/L Potassium (3.3-5.1) mmol/L Chloride (96-108) mmol/L Carbon Dioxide (22-30) mmol/L Anion Gap (8-16) BUN (8-23) mg/dl Creatinine (0.6-1.1) mg/dl GFR Calculation Glucose (70-105) mg/dL Calcium (8.6-10.4) mg/dl Total Bilirubin (0.0-1.0) mg/dL AST (0-37) U/l ALT (0-40) U/l Alkaline Phosphatase (39-117) U/L Troponin T < 0.01 (0-0.03) ng/ml Total Protein (5.9-8.4) gm/dL Albumin (3.2-5.2) gm/dL Globulin (2.2-3.7) gm/dL Albumin/Globulin Ratio (1.0-2.3) Urine Color Urine Appearance Urine pH (5.0-9.0) Ur Specific [place] (1.000-1.035) Urine Protein (NEG) mg/dL Urine Glucose (UA) (NEG) mg/dL Urine Ketones (NEG) mg/dL Urine Occult Blood (<0.03) mg/dL Urine Nitrate (NEG) Urine Bilirubin (NEG) mg/dL Urine Urobilinogen (NEG) mg/dL Ur Leukocyte Esterase (NEG) /uL Ur Culture Indicated? - Radiology Data Radiology results reviewed: Yes I reviewed the patient's radiology results. Disposition Pt seen by [facility]OUND[facility]/PA only: No Clinical Impression: Chronic anticoagulation, History of DVT (deep vein thrombosis) Trimalleolar fracture of ankle, closed Qualifiers: Encounter type: initial encounter Laterality: right Qualified Code(s): S82.851A - Displaced trimalleolar fracture of right lower leg, initial encounter for closed fracture Laceration of scalp without complication Qualifiers: Encounter type: initial encounter Qualified Code(s): S01.01XA - Laceration without foreign body of scalp, initial encounter Disposition: Home, Self-Care Condition: Fair Instructions: Hydrocodone/Acetaminophen (By mouth), Ankle Fracture (ED) Additional Instructions: Give the hydrocodone as needed for moderate to severe pain. To prevent constipation from the narcotics, Colace 100 mg twice daily, MiraLAX 1 scoop every other day and increase to once daily if needed. Follow-up with Dr. Leblanc, orthopedic, in 7-10 days. RETURN TO ER IF YOU HAVE IMPORTANT SYMPTOMS OR FINDINGS SUCH SIGNIFICANT OR MAJOR: -- abdominal pain -- chest pain -- shortness of breath -- bleeding -- unexplained fever -- unexplained weakness or numbness of one side of your body, difficulty speaking, or sudden loss of vision (stroke symptoms) -- sudden new "thunderclap" headache, OR other significant problems or symptoms. Referrals: Devi Wade [Primary Care Provider] -
[2018-04-07] MEDS ORDERED: MIDAZOLAM 2 MG/2 ML VIAL IV ONE (14:10)
[2018-04-07] MEDS ORDERED: PROPOFOL 200 MG/20 ML VIAL IV ONE (14:10)
[2018-04-07] MEDS ORDERED: KETAMINE 100 MG/ML ML IV ONE (14:10)
--- NOTE | 2018-04-07 15:02 | XRay Report ---
CLINICAL INFORMATION: Posterior reduction trimalleolar fracture COMPARISON: None. FINDINGS: The Ferguson C obliquely oriented fracture through the distal femoral metadiaphysis has been reduced to near-anatomic alignment with minimal residual displacement. The posterior and medial malleolar fractures also been reduced to near-anatomic alignment. IMPRESSION: Reduction of trimalleolar fracture now in near-anatomic alignment. Interpreted and Authenticated by: Tristian Arrieta 04/07/18
[2018-04-07 16:38] LABS: Appearance,Urine CLEAR; Bilirubin,Urine NEG (NEG); Color,Urine YELLOW; Glucose,Urine (UA) NEGATIVE (NEG); Leukocyte Esterase,Urine NEG /uL (NEG); Protein,Urine NEG (NEG); Specific Gravity,Urine 1.013 (1.000-1.035); Urine Blood NEG mg/dL (<0.03); Urobilinogen,Urine NEG (NEG)
[2018-04-07 16:41] LABS: Basophils # (Auto) 0 K/mcL (0.0-0.3); Basophils % (Auto) 0 % (0.0-2.0); Eosinophils # (Auto) 0.1 K/mcL (0.0-0.7); Eosinophils % (Auto) 1.5 % (0.0-7.0); Granulocytes % (Auto) 73.7 % (38.0-78.0); Lymphocytes # (Auto) 1.5 K/mcL (1.5-4.8); Lymphocytes % (Auto) 17.3 % (15.5-49.0); Mean Cell Volume 90.1 fL (80.0-100.0); Mean Corpuscular HGB Conc 32.6 g/dL (31.0-36.0); Mean Corpuscular Hemoglobin 29.4 pg (26.0-34.0); Monocytes # (Auto) 0.6 K/mcL (0.1-0.9); Monocytes % (Auto) 7.5 % (1.0-12.0); Platelet Count 183 K/mcL (140-440); RBC 3.74 M/mcL (4.00-5.20); Red Cell Distribution Width 13.8 % (11.5-14.5)
[2018-04-07 16:55] LABS: ALT/SGPT < 5 U/l (0-40); Albumin 3.1 gm/dL (3.2-5.2); Albumin/Globulin Ratio 0.9 (1.0-2.3); Alkaline Phosphatase 62 U/L (39-117); Blood Urea Nitrogen 14 mg/dl (8-23)
--- NOTE | 2018-04-07 18:06 | Internal Med History&Physical ---
Medical - H&P: [facility] Patient information: Note initiated : 04/07/18 at 6:02 pm Service Date, if different from initiated Date: [] Patient: Celia Villasenor a 77 y/o F admitted on 04/07/18 for Fall From Standing. Chief Complaint: [] Chief complaint: fall with rt ankle pain History of present illness: Ms. Villasenor is a 77 year old F [place] resident with a history of advanced Parkinson's and gait instability/ataxia fell sustaining injury to Rt foot. ED eval- trimalleolar fracture, Ortho consulted. Reduction was perfromed by ED physician Dr. mendosa under anesthesia in ED. case management consulted and patient remains high-risk for further injury and due to nonweightbearing status. Patient per ED physician will require operative intervention over the next 1 week. Hospitalist consulted for admission as care facility unable to accept patient due to higher level of care/nonweightbearing status. She remains high risk fall and injury requiring rehab including PT/OT and will need SNF transfer. Case management and coordinating. Patient admitted under observation until SNF transfer is available At the time evaluation patient does under effects of anesthesia. She was modified much of the history.She was obtained from review of medical records and ER physician. She however appears nondistressed. No family members were present. Review of systems 10 point review systems was performed but could not be obtained due to patient' s mental status under effects of anesthesia Medical - H&P: PMH Medical history: Medical history: Reports: asthma, COPD, dementia, GERD, hypertension, pulmonary embolus, other (Parkinsons. Pneumonia. Peripheral neuropathy. C difficile colitis. Complicated UTI. DENIES Osteoporosis.). Denies: cancer, coronary artery disease, CVA, myocardial infarction, seizures, thyroid disease, TIA Surgical history ED: Reports: orthopedic, other (right wrist .) Psychiatric history: Reports: anxiety, bipolar Social history: [place] resident dementia Smoking status: Former smoker Medical - H&P: Meds Home Medications Medication Instructions Recorded Confirmed Type RX: Acetaminophen [Tylenol] 650 mg PO Q4HP PRN 11/04/17 04/07/18 History RX: Albuterol Sulfate [Ventolin] 1 - 2 puff INH Q4HP PRN 11/04/17 04/07/18 History RX: Baclofen [Lioresal] 5 mg PO HS 11/04/17 04/07/18 History RX: Carbidopa/Levodopa 2 each PO TID 11/04/17 04/07/18 History [Carbidopa-Levo 25-100 mg Odt] RX: Dabigatran Etexilate Mesylate 150 mg PO BID 11/04/17 04/07/18 History [Pradaxa] RX: Gabapentin [Neurontin] 900 mg PO TID 11/04/17 04/07/18 History RX: [place] Carbonate 150 mg PO BID 11/04/17 04/07/18 History RX: Omeprazole [Prilosec] 20 mg PO ACB 11/04/17 04/07/18 History RX: Oxybutynin Chloride 5 mg PO DAILY 11/04/17 04/07/18 History [Oxybutynin Chloride ER] RX: Propranolol [Inderal] 20 mg PO BID 11/04/17 04/07/18 History RX: Umeclidinium [place] [Incruse 62.5 mcg INH DAILY 11/04/17 04/07/18 History Ellipta] RX: busPIRone HCL [Buspirone HCl] 10 mg PO TID 11/04/17 04/07/18 History RX: oxyCODONE HCL [Oxycodone HCl] 1 tab PO QIDP 11/04/17 04/07/18 History RX: rOPINIRole HCL [Requip] 0.5 mg PO BID 11/04/17 04/07/18 History RX: Ergocalciferol (Vitamin D2) 50,000 units PO Q15D 11/07/17 04/07/18 History [Vitamin D2] RX: Fluticasone Propionate 1 spray INTRANASAL BID 11/07/17 04/07/18 History [Flonase] RX: Fluticasone/Vilanterol [Breo 1 puff INH DAILY 11/07/17 04/07/18 History Ellipta 100-25 Mcg INH] RX: Primidone [Mysoline] 100 mg PO HS 11/07/17 04/07/18 History Memantine HCl [Namenda] 10 mg PO BID 04/02/18 04/07/18 History SUMAtriptan SUCCINATE [Imitrex] 50 mg PO PRN PRN 04/02/18 04/07/18 History Hydrocodone/APAP 7.5/325Mg [[place] 1 - 2 tab PO Q4-6HP PRN #65 tab 04/04/1804/07 Rx 7.5-325Mg] Methocarbamol [Robaxin] 750 mg PO QIDP PRN #30 tab 04/04/18 04/07/18 Rx Breo Ellipta 100-25 Mcg INH 1 puff INH DAILY 04/07/18 04/07/18 History Fexofenadine HCl [Aller-Fex] 180 mg PO DAILY 04/07/18 04/07/18 History Fluticasone/Vilanterol [Breo 1 inh IH DAILY 04/07/18 04/07/18 History Ellipta 100-25 Mcg INH] Ondansetron HCl [Zofran ODT] 4 mg SL Q4-6HP PRN 04/07/18 04/07/18 History Allergies Allergy/AdvReac Type Severity Reaction Status Date / Time lactose Allergy Severe Vomiting Verified 04/07/18 20:58 promethazine Allergy Unknown Verified 04/07/18 20:58 Medical - H&P: Exam - Constitutional Vitals: Temp Pulse Resp BP Pulse Ox 98.3 F 77 11 L 151/67 96 04/07/18 08:17 04/07/18 17:16 04/07/18 17:16 04/07/18 17:16 04/07/18 17:16 General appearance: no acute distress, obese Exam: Sedated under anesthesia Able to open eyes to verbal commands and moving all 4 extremities Pupils symmetric Oral cavity dry No ear discharge Head normocephalic Neck no lymphadenopathy S1 and S2 occasionally regular Chest clear to auscultation Diminished breath sounds bases Abdomen soft Lower extremity right lower extremity postreduction No lymphedema Skin no suspicious lesion Medical - H&P: Reslt - Labs CBC & Chem 7: 04/08/18 04:00 04/08/18 04:00 Labs: Short CBC 04/07/18 Range/Units 16:04 WBC 8.6 (4.5-11.0) K/mcL Hgb 11.0 L (12.0-15.0) g/dL Hct 33.7 L (36.0-48.0) % Plt Count 183 (140-440) K/mcL BMP 04/07/18 16:04 Sodium 138 Potassium 4.7 Chloride 103 Carbon Dioxide 24 BUN 14 Creatinine 1.2 H Glucose 180 H Calcium 8.5 L Cardiac Enzymes 04/07/18 Range/Units 16:04 Troponin T < 0.01 (0-0.03) ng/ml Liver Function 04/07/18 Range/Units 16:04 Total Bilirubin 0.4 (0.0-1.0) mg/dL AST 14 (0-37) U/l ALT < 5 (0-40) U/l Alkaline Phosphatase 62 (39-117) U/L Albumin 3.1 L (3.2-5.2) gm/dL Urine 04/07/18 Range/Units 16:00 Urine Color Yellow Urine Appearance Clear Urine pH 6.0 (5.0-9.0) Ur Specific [place] 1.013 (1.000-1.035) Urine Protein Neg (NEG) mg/dL Urine Glucose (UA) Negative (NEG) mg/dL Medical - H&P: A/P (1) Ankle fracture, right Current visit: Yes Status: Acute * Right ankle fracture status post reduction under anesthesia. Continue pain management. Initiate physical therapy.Observation admit. Case management coordinate SNF transfer * Pain management on as needed opioids * Neuropathy on gabapentin * Anxiety disorder and BuSpar * History of dementia on memantine * Parkinson's on Sinemet/ropinirole * History of PE on anticoagulation * Anticoagulation on Pradaxa Plan * Observation admit * Pain management/PT OT/gait and safety eval * Case management to arrange SNF transfer * pre-existing medical condition management as above
[2018-04-07] MEDS ORDERED: ONDANSETRON 4 MG/2 ML VIAL IV PRN (18:39)
[2018-04-07] MEDS ORDERED: guaiFENesin/CODEINE 10 ML UDC PO PRN (18:39)
[2018-04-07] MEDS ORDERED: ACETAMINOPHEN 1,000 MG/100 ML BOTTLE IV PRN (18:39)
[2018-04-07] MEDS ORDERED: HYDROcodone/APAP 5/325MG TABLET PO PRN (18:39)
[2018-04-07] MEDS ORDERED: traZODone HCL 50 MG TABLET PO PRN (18:39)
[2018-04-07] MEDS ORDERED: POTASSIUM CHLORIDE 20 MEQ PACKET PO PRN (18:39)
[2018-04-07] MEDS ORDERED: MAGNESIUM SULFATE 2 GM/50 ML BAG IV PRN (18:39)
[2018-04-07] MEDS ORDERED: ALBUTEROL SULFATE 1 PUFF INHALER INH PRN (18:39)
[2018-04-07] MEDS ORDERED: ACETAMINOPHEN 325 MG TABLET PO PRN ×2 (18:39)
[2018-04-07] MEDS ORDERED: SUMAtriptan SUCCINATE 50 MG TABLET PO PRN (18:39)
[2018-04-07] MEDS ORDERED: ONDANSETRON ODT 4 MG TABLET SL PRN (18:39)
[2018-04-07] MEDS: 0.9 % SODIUM CHLORIDE 10 ML SYRINGE IV SCH (19:10)
[2018-04-07] MEDS: 0.9 % SODIUM CHLORIDE 1,000 ML IV SCH (19:10)
[2018-04-07] MEDS: oxyCODONE HCL 5 MG TABLET PO PRN (20:58)
[2018-04-07] MEDS: BACLOFEN 10 MG TABLET PO SCH (20:58)
[2018-04-07] MEDS: DOCUSATE SODIUM 100 MG CAPSULE PO SCH (20:59)
[2018-04-07] MEDS: CARBIDOPA/LEVODOPA 25/100 TABLET PO SCH (21:00)
[2018-04-07] MEDS: PROPRANOLOL 10 MG TABLET PO SCH (21:00)
[2018-04-07] MEDS: SENNOSIDES/DOCUSATE SODIUM 1 TAB TABLET PO SCH (21:01)
[2018-04-07] MEDS: rOPINIRole 0.25 MG TABLET PO SCH (21:01)
[2018-04-07] MEDS: DABIGATRAN ETEXILATE MESYLATE 75 MG CAPSULE PO SCH (21:02)
[2018-04-07] MEDS: busPIRone 5 MG TABLET PO SCH (21:03)
[2018-04-07] MEDS: GABAPENTIN 300 MG CAPSULE PO SCH (21:03)
[2018-04-07] MEDS: PRIMIDONE 50 MG TABLET PO SCH (21:04)
[2018-04-07] MEDS: LITHIUM CARBONATE 150 MG CAPSULE PO SCH (22:44)
[2018-04-08 05:54] LABS: Mean Cell Volume 91.6 fL (80.0-100.0); Mean Corpuscular HGB Conc 32.6 g/dL (31.0-36.0); Mean Corpuscular Hemoglobin 29.8 pg (26.0-34.0); Platelet Count 180 K/mcL (140-440); RBC 3.83 M/mcL (4.00-5.20); Red Cell Distribution Width 13.2 % (11.5-14.5)
[2018-04-08 06:30] LABS: ALT/SGPT < 5 U/l (0-40); Albumin 3.6 gm/dL (3.2-5.2); Albumin/Globulin Ratio 1.2 (1.0-2.3); Alkaline Phosphatase 61 U/L (39-117); Bilirubin,Direct < 0.2 mg/dL (0.0-0.3); Blood Urea Nitrogen 13 mg/dl (8-23); Gamma Glutamyl Transpeptidase 30 U/L (5-36); Uric Acid 5.6 mg/dL (2.5-8.0)
[2018-04-08 07:03] LABS: Lymphocytes % 22 % (15-49); Monocytes % (Manual) 2 % (1-12); Platelet Estimate NORMAL (NORMAL); RBC Morphology NORMAL (NORMAL); Segmented Neutrophils % 76 % (38-78)
[2018-04-08] MEDS: 0.9 % SODIUM CHLORIDE 10 ML SYRINGE IV SCH ×3 (08:07→21:01)
[2018-04-08] MEDS: OMEPRAZOLE 20 MG CAPSULE PO SCH (08:08)
[2018-04-08] MEDS: oxyCODONE HCL 5 MG TABLET PO PRN ×3 (08:08→16:41)
[2018-04-08] MEDS ORDERED: NON FORMULARY MEDICATION 1 DOSE MISCELL (Fluticasone/Vilanterol [Breo Ellipta 100-25 Mcg I INH SCH (09:00)
--- NOTE | 2018-04-08 09:37 | Internal Med Progress Note ---
Medical - PN: Subj Patient information: Note initiated : 04/08/18 at 9:36 am Service Date, if different from initiated Date: [] Patient: Celia Villasenor a 77 y/o F admitted on 04/07/18 for Fall From Standing. Chief Complaint: [] Interval history: Ms. Villasenor is a 77 year old F [place] resident with a history of advanced Parkinson's and gait instability/ataxia fell sustaining injury to Rt foot. ED eval- trimalleolar fracture, Ortho consulted. Reduction was perfromed by ED physician Dr. mendosa under anesthesia in ED. case management consulted and patient remains high-risk for further injury and due to nonweightbearing status. Patient per ED physician will require operative intervention over the next 1 week. Hospitalist consulted for admission as care facility unable to accept patient due to higher level of care/nonweightbearing status. She remains high risk fall and injury requiring rehab including PT/OT and will need SNF transfer. Case management and coordinating. Patient admitted under observation until SNF transfer is available At the time evaluation patient does under effects of anesthesia. She was modified much of the history.She was obtained from review of medical records and ER physician. She however appears nonstressed. April 08-patient alert and oriented. No overnight events. No concerns per staff. No anxiety. Pain good control. Case management and arrange SNF transfer. Cast right upper and lower extremity. Nonweightbearing status. - Constitutional Vitals: Vital Signs Temp Pulse Resp BP Pulse Ox 98.5 F 63 18 133/72 91 04/08/18 07:26 04/08/18 07:26 04/08/18 07:26 04/08/18 07:26 04/08/18 07:26 Period Temp Pulse Resp BP Sys/[place] Pulse Ox Last 24 Hr 98.5 F-99.9 F 63-88 9-23 98-172/58-93 90-100 Intake and Output 04/07/18 04/08/18 04/08/18 21:59 05:59 13:59 Intake Total 600 / 600 240 / 240 Output Total 900 / 900 825 / 825 Balance -900 / -900 -225 / -225 240 / 240 Weight 165 lb 6.4 oz Intake & Output: Intake & Output 04/07/18 04/08/18 04/08/18 21:59 05:59 13:59 Intake Total 600 / 600 240 / 240 Output Total 900 / 900 825 / 825 Balance -900 / -900 -225 / -225 240 / 240 Weight 165 lb 6.4 oz Intake: Oral 600 / 600 240 / 240 Output: Urine Catheter Amount 900 / 900 825 / 825 Other: Meal Breakfast Percent of Meal Consumed 10% Feeding Ability Assist with Tray Set Up Stool Size Moderate Smear Small Stool Color Brown Brown Brown Stool Consistency Loose Liquid Liquid # Bowel Movements 1 1 Medical - PN: Obj Da - Labs CBC & Chem 7: 04/08/18 04:00 04/08/18 04:00 Labs: Abnormal Lab Results 04/08/18 04/08/18 04/07/18 04:00 04:00 16:04 RBC 3.83 L Hgb 11.4 L Hct 35.1 L Carbon Dioxide 21 L Creatinine 1.2 H Glucose 244 H 180 H Calcium 8.4 L 8.5 L Albumin 3.1 L Albumin/Globulin Ratio 0.9 L 04/07/18 16:04 RBC 3.74 L Hgb 11.0 L Hct 33.7 L Carbon Dioxide Creatinine Glucose Calcium Albumin Albumin/Globulin Ratio Meds: Medications Acetaminophen (Tylenol) 650 mg PO Q4-6HP PRN PRN Reason: PAIN/FEVER > 101 Acetaminophen (Tylenol) 650 mg PO Q4HP PRN PRN Reason: Pain Hydrocodone Bitart/Acetaminophen ([place] 5/325mg) 0 tab PO Q4HP PRN PRN Reason: PAIN LEVEL 3-6 Albuterol Sulfate (Ventolin) 1 - 2 puff INH Q4HP PRN PRN Reason: Shortness Of Breath Baclofen (Lioresal) 5 mg PO [facility] Last Admin: 04/07/18 20:58 Dose: 5 mg Buspirone HCl (Buspar) 10 mg PO TID [facility] Last Admin: 04/07/18 21:03 Dose: 10 mg Carbidopa/Levodopa (Sinemet 25/100) 1 tab PO TID [facility] Last Admin: 04/07/18 21:00 Dose: 1 tab Dabigatran (Pradaxa) 150 mg PO BID [facility] Last Admin: 04/07/18 21:02 Dose: 150 mg Docusate Sodium (Colace) 100 mg PO BID [facility] Last Admin: 04/07/18 20:59 Dose: 100 mg Ergocalciferol (Drisdol) 50,000 unit PO Q15D [facility] Fexofenadine HCl (Leisa) 180 mg PO DAILY [facility] Gabapentin (Neurontin) 900 mg PO TID [facility] Last Admin: 04/07/18 21:03 Dose: 900 mg Guaifenesin/Codeine Phosphate (Robitussin Ac) 10 ml PO Q4HP PRN PRN Reason: Cough Hydromorphone HCl (Dilaudid) 0 mg IV Q4HP PRN PRN Reason: PAIN LEVEL > 6 Magnesium Sulfate (Magnesium Sulfate) 2 gm in 50 mls @ 50 mls/hr IV UD PRN PRN Reason: MG = or < 1.7 Sodium Chloride (Sodium Chloride 0.9%) 1,000 mls @ 50 mls/hr IV .Q20H [facility] Stop: 04/10/18 06:38 Last Admin: 04/07/18 19:10 Dose: 50 mls/hr Acetaminophen (Ofirmev) 1,000 mg in 100 mls @ 200 mls/hr IV Q6HP PRN PRN Reason: PAIN/FEVER > 101 Iron Carb/Multivit/Swain/Folic Acid (Multivitamin W/Minerals) 1 tab PO DAILY [facility] Potrero Carbonate ([place]rero Carbonate) 150 mg PO BID [facility] Last Admin: 04/07/18 22:44 Dose: 150 mg Memantine (Namenda) 10 mg PO BID [facility] Morphine Sulfate (Morphine) 1 mg IV Q2-4HP PRN PRN Reason: PAIN LEVEL > 6 Omeprazole (Prilosec) 20 mg PO ACB [facility] Last Admin: 04/08/18 08:08 Dose: 20 mg Ondansetron HCl (Zofran) 4 mg IV Q4-6HP PRN PRN Reason: Nausea And Vomiting Ondansetron HCl (Zofran Odt) 4 mg SL Q4-6HP PRN PRN Reason: Nausea Oxybutynin Chloride (Ditropan Xl) 5 mg PO DAILY [facility] Oxycodone HCl (Roxicodone) 5 mg PO QIDP PRN PRN Reason: Pain Last Admin: 04/08/18 08:08 Dose: 5 mg Fluticasone/Vilanterol [Breo Ellipta 100-25 Mcg Inh 1 dose INH DAILY [facility] Potassium Chloride (Klor-Con) 40 meq PO DAILYP PRN PRN Reason: K+ < 3.5 Primidone (Mysoline) 100 mg PO HS [facility] Last Admin: 04/07/18 21:04 Dose: 100 mg Propranolol HCl (Inderal) 20 mg PO BID [facility] Last Admin: 04/07/18 21:00 Dose: 20 mg Ropinirole HCl (Requip) 0.5 mg PO BID [facility] Last Admin: 04/07/18 21:01 Dose: 0.5 mg Senna/Docusate Sodium (Senna Plus Tablet) 1 tab PO HS [facility] Last Admin: 04/07/18 21:01 Dose: 1 tab Sodium Chloride (Saline Flush) 10 ml IV Q8 [facility] Last Admin: 04/08/18 08:07 Dose: Not Given Sumatriptan Succinate (Imitrex) 50 mg PO PRN PRN PRN Reason: Migraine Headache Trazodone HCl (Desyrel) 50 mg PO HSP PRN PRN Reason: Insomnia Medical - PN: A/P - Time Spent With Patient Total time spent is greater than 50% in coordination of care (as documented) at patient's floor/unit and/or counseling patient: (1) Ankle fracture, right Status: Acute Assessment and plan: * Right ankle fracture/dislocation status post reduction under anesthesia. Continue pain management. Continue PT. SNF transfer once coordinated * Pain management on as needed opioids * Neuropathy on gabapentin * Anxiety disorder and BuSpar * History of dementia on memantine * Parkinson's on Sinemet/ropinirole * History of PE on anticoagulation * Anticoagulation on Pradaxa Plan * Transfer to SNF likely in 24 hours * Pain management/PT OT/gait and safety eval * pre-existing medical condition management as above Current Visit: Yes Medical - PN: Qual - VTE Deep Vein Thrombosis/Pulmonary Embolism Present on Admission: No
[2018-04-08] MEDS: LITHIUM CARBONATE 150 MG CAPSULE PO SCH ×2 (10:00→20:54)
[2018-04-08] MEDS: MULTIVIT,THER IRON,CA,FA & MIN 1 TABLET PO SCH (10:00)
[2018-04-08] MEDS: GABAPENTIN 300 MG CAPSULE PO SCH ×3 (10:00→20:55)
[2018-04-08] MEDS: PROPRANOLOL 10 MG TABLET PO SCH ×2 (10:00→20:56)
[2018-04-08] MEDS: busPIRone 5 MG TABLET PO SCH ×3 (10:00→20:55)
[2018-04-08] MEDS: rOPINIRole 0.25 MG TABLET PO SCH ×2 (10:00→20:56)
[2018-04-08] MEDS: MEMANTINE 10 MG TABLET PO SCH ×2 (10:01→20:56)
[2018-04-08] MEDS: DOCUSATE SODIUM 100 MG CAPSULE PO SCH ×2 (10:01→21:01)
[2018-04-08] MEDS: OXYBUTYNIN CHLORIDE 5 MG TAB.XL.24H PO SCH (10:01)
[2018-04-08] MEDS: FEXOFENADINE 180 MG TABLET PO SCH (10:01)
[2018-04-08] MEDS: DABIGATRAN ETEXILATE MESYLATE 75 MG CAPSULE PO SCH ×2 (10:01→20:55)
[2018-04-08] MEDS: CARBIDOPA/LEVODOPA 25/100 TABLET PO SCH ×3 (10:01→20:56)
[2018-04-08] MEDS: Fluticasone/Vilanterol [Breo Ellipta 100-25 Mcg Inh INH SCH (11:14)
[2018-04-08] MEDS: 0.9 % SODIUM CHLORIDE 1,000 ML IV SCH (16:51)
[2018-04-08] MEDS: BACLOFEN 10 MG TABLET PO SCH (20:55)
[2018-04-08] MEDS: PRIMIDONE 50 MG TABLET PO SCH (20:55)
[2018-04-08] MEDS: SENNOSIDES/DOCUSATE SODIUM 1 TAB TABLET PO SCH (21:01)
[2018-04-09] MEDS: 0.9 % SODIUM CHLORIDE 10 ML SYRINGE IV SCH (05:23)
[2018-04-09 06:41] LABS: Mean Cell Volume 90.7 fL (80.0-100.0); Mean Corpuscular HGB Conc 33.2 g/dL (31.0-36.0); Mean Corpuscular Hemoglobin 30.1 pg (26.0-34.0); Platelet Count 167 K/mcL (140-440)
[2018-04-09 07:15] LABS: ALT/SGPT 5 U/l (0-40); Albumin 3.1 gm/dL (3.2-5.2); Alkaline Phosphatase 56 U/L (39-117); Bilirubin,Direct < 0.2 mg/dL (0.0-0.3); Blood Urea Nitrogen 11 mg/dl (8-23); Gamma Glutamyl Transpeptidase 24 U/L (5-36); Uric Acid 4.9 mg/dL (2.5-8.0)
[2018-04-09 07:43] LABS: Band Neutrophils % 1 % (0-10); Eosinophils % (Manual) 5 % (0-7); Lymphocytes % 23 % (15-49); Monocytes % (Manual) 6 % (1-12); Platelet Estimate NORMAL (NORMAL); RBC Morphology NORMAL (NORMAL); Segmented Neutrophils % 65 % (38-78)
[2018-04-09] MEDS: OMEPRAZOLE 20 MG CAPSULE PO SCH (08:15)
[2018-04-09] MEDS: FEXOFENADINE 180 MG TABLET PO SCH (09:24)
[2018-04-09] MEDS: DOCUSATE SODIUM 100 MG CAPSULE PO SCH (09:24)
[2018-04-09] MEDS: rOPINIRole 0.25 MG TABLET PO SCH (09:25)
[2018-04-09] MEDS: CARBIDOPA/LEVODOPA 25/100 TABLET PO SCH (09:26)
[2018-04-09] MEDS: OXYBUTYNIN CHLORIDE 5 MG TAB.XL.24H PO SCH (09:26)
[2018-04-09] MEDS: MEMANTINE 10 MG TABLET PO SCH (09:26)
[2018-04-09] MEDS: busPIRone 5 MG TABLET PO SCH (09:27)
[2018-04-09] MEDS: GABAPENTIN 300 MG CAPSULE PO SCH (09:27)
[2018-04-09] MEDS: MULTIVIT,THER IRON,CA,FA & MIN 1 TABLET PO SCH (09:27)
[2018-04-09] MEDS: LITHIUM CARBONATE 150 MG CAPSULE PO SCH (09:27)
[2018-04-09] MEDS: PROPRANOLOL 10 MG TABLET PO SCH (09:28)
--- NOTE | 2018-04-09 09:37 | Discharge Summary ---
Medical - DS: Prov Patient information: Note initiated : 04/09/18 at 9:35 am Service Date, if different from initiated Date: [] Patient: Celia Villasenor 77 y/o F admitted on 04/07/18 for Fall From Standing/ Ankle Fracture, Right. Chief Complaint: [] Date of admission: 04/07/18 17:50 Discharge date: 04/09/18 Primary care physician: Devi Wade Consults: 04/07/18 15:12 Consult to Physician [CONS] Stat Comment: Consulting Provider: Vito Tuttle Reason For Exam: Physician to Consult Medical - DS: Meds - Discharge Medications Active and Home Medications: Home Medications Acetaminophen [Tylenol] 650 mg PO Q4HP PRN 11/04/17 [History Confirmed 04/07/18 Last Taken 03/24/18] Albuterol Sulfate [Ventolin] 1 - 2 puff INH Q4HP PRN 11/04/17 [History Confirmed 04/07/18 Last Taken Unknown] Baclofen [Lioresal] 5 mg PO HS 11/04/17 [History Confirmed 04/07/18 Last Taken 04/03/18] Carbidopa/Levodopa [Carbidopa-Levo 25-100 mg Odt] 2 each PO TID 11/04/17 [ History Confirmed 04/07/18 Last Taken 04/03/18] Dabigatran Etexilate Mesylate [Pradaxa] 150 mg PO BID 11/04/17 [History Confirmed 04/07/18 Last Taken 04/03/18] Gabapentin [Neurontin] 900 mg PO TID 11/04/17 [History Confirmed 04/07/18 Last Taken 04/03/18] [place] Carbonate 150 mg PO BID 11/04/17 [History Confirmed 04/07/18 Last Taken 04/03/18] Omeprazole [Prilosec] 20 mg PO ACB 11/04/17 [History Confirmed 04/07/18 Last Taken 04/03/18] Oxybutynin Chloride [Oxybutynin Chloride ER] 5 mg PO DAILY 11/04/17 [History Confirmed 04/07/18 Last Taken 04/03/18] Propranolol [Inderal] 20 mg PO BID 11/04/17 [History Confirmed 04/07/18 Last Taken 04/03/18] Umeclidinium [place] [Incruse Ellipta] 62.5 mcg INH DAILY 11/04/17 [History Confirmed 04/07/18 Last Taken 11/06/17] busPIRone HCL [Buspirone HCl] 10 mg PO TID 11/04/17 [History Confirmed 04/07/18 Last Taken 04/03/18] oxyCODONE HCL [Oxycodone HCl] 1 tab PO QIDP 11/04/17 [History Confirmed Last Taken 04/03/18] rOPINIRole HCL [Requip] 0.5 mg PO BID 11/04/17 [History Confirmed 04/07/18 Last Taken 04/03/18] Ergocalciferol (Vitamin D2) [Vitamin D2] 50,000 units PO Q15D 11/07/17 [History Confirmed 04/07/18 Last Taken 10/29/17] Fluticasone Propionate [Flonase] 1 spray INTRANASAL BID 11/07/17 [History Confirmed 04/07/18 Last Taken 04/03/18] Fluticasone/Vilanterol [Breo Ellipta 100-25 Mcg INH] 1 puff INH DAILY 11/07/17 [ History Confirmed 04/07/18 Last Taken 04/03/18] Primidone [Mysoline] 100 mg PO HS 11/07/17 [History Confirmed 04/07/18 Last Taken 04/03/18] Memantine HCl [Namenda] 10 mg PO BID 04/02/18 [History Confirmed 04/07/18 Last Taken 04/03/18] SUMAtriptan SUCCINATE [Imitrex] 50 mg PO PRN PRN 04/02/18 [History Confirmed Last Taken Unknown] Hydrocodone/APAP 7.5/325Mg [[place] 7.5-325Mg] 1 - 2 tab PO Q4-6HP PRN #65 tab [Rx Confirmed 04/07/18 Last Taken Unknown] Methocarbamol [Robaxin] 750 mg PO QIDP PRN #30 tab 04/04/18 [Rx Confirmed Last Taken Unknown] Breo Ellipta 100-25 Mcg INH 1 puff INH DAILY 04/07/18 [History Confirmed Last Taken Unknown] Fexofenadine HCl [Aller-Fex] 180 mg PO DAILY 04/07/18 [History Confirmed Last Taken Unknown] Fluticasone/Vilanterol [Breo Ellipta 100-25 Mcg INH] 1 inh IH DAILY 04/07/18 [ History Confirmed 04/07/18 Last Taken Unknown] Ondansetron HCl [Zofran ODT] 4 mg SL Q4-6HP PRN 04/07/18 [History Confirmed Last Taken Unknown] Medical - DS: Hosp Hospital course: Discharge diagnosis * Right ankle fracture/dislocation status post reduction under anesthesia. Continue pain management. Continue PT/OT at SNF. Follow-up orthopedics in 1 week * Pain management -continue as needed opioids/Tylenol * Neuropathy on gabapentin * Anxiety disorder and BuSpar * History of dementia on memantine * Parkinson's on Sinemet/ropinirole * History of PE on anticoagulation on Pradaxa Brief hospital course Ms. Villasenor is a 77 year old F [place] resident with a history of advanced Parkinson's and gait instability/ataxia fell sustaining injury to Rt foot. ED eval- trimalleolar fracture, Ortho consulted. Reduction was perfromed by ED physician Dr. mendosa under anesthesia in ED. case management consulted and patient remains high-risk for further injury and due to nonweightbearing status. Patient per ED physician will require operative intervention over the next 1 week. Hospitalist consulted for admission as care facility unable to accept patient due to higher level of care/nonweightbearing status. She remains high risk fall and injury requiring rehab including PT/OT and will need SNF transfer. Case management and coordinating. Patient admitted under observation until SNF transfer is available At the time evaluation patient does under effects of anesthesia. She was modified much of the history.She was obtained from review of medical records and ER physician. She however appears nonstressed. April 08-patient alert and oriented. No overnight events. No concerns per staff. No anxiety. Pain good control. Case management and arrange SNF transfer. Cast right upper and lower extremity. Nonweightbearing status. April 09-patient doing well. Ongoing physical therapy. Continued pain and nonweightbearing status. Discharging to rule out Agency for continued post hospitalization rehabilitation. Recommend follow-up with orthopedics in 1 week. Discharge instructions and medications as below Discharge diagnosis: . - Time Spent with Patient Total time spent providing and/or coordinating discharge services: Greater than 30 minutes Medical - DS: Exam - Constitutional Vitals: Vital Signs Temp Pulse Resp BP Pulse Ox 04/09/18 07:40 98.0 F 76 136/80 04/09/18 07:23 93 04/09/18 07:18 99.1 F H 24 H 142/78 93 04/09/18 03:40 98.8 F 72 22 134/73 96 04/09/18 00:00 99.5 F H 77 22 150/88 93 04/08/18 23:40 96 04/08/18 19:37 99.8 F H 81 24 H 126/66 94 04/08/18 16:00 99.8 F H 78 18 148/80 95 04/08/18 11:29 98.7 F 65 18 130/74 97 Intake and Output 04/08/18 04/09/18 04/09/18 21:59 05:59 13:59 Intake Total 2190 / 2190 625 / 625 Output Total 1475 / 1475 525 / 525 500 / 500 Balance 715 / 715 100 / 100 -500 / -500 Intake: IV 1000 / 1000 Sodium Chloride 0.9% 1,000 ml @ 1000 / 1000 50 mls/hr IV .Q20H [facility] Rx#: [id number] Oral 1190 / 1190 625 / 625 Output: Urine Catheter Amount 1475 / 1475 525 / 525 500 / 500 Other: Meal Dinner Percent of Meal Consumed 75% Feeding Ability Assist with Tray Set Up Stool Size Smear Stool Color Brown Stool Consistency Loose # Bowel Movements 1 Weight 165 lb Medical - DS: Data Labs on day of discharge: Labs from last 24 hours 04/09/18 04/09/18 05:08 05:08 WBC 6.8 RBC 3.30 L Hgb 9.9 L Hct 29.9 L MCV 90.7 MCH 30.1 MCHC 33.2 RDW 13.0 Plt Count 167 MPV 8.3 Total Counted 100 Seg Neutrophils % 65 Band Neutrophils % 1 Lymphocytes % 23 Monocytes % (Manual) 6 Eosinophils % (Manual) 5 Platelet Estimate Normal RBC Morphology Normal Sodium 134 Potassium 4.6 Chloride 101 Carbon Dioxide 23 Anion Gap 10.0 BUN 11 Creatinine 1.0 GFR Calculation 54 Glucose 225 H Uric Acid 4.9 Calcium 8.3 L Phosphorus 2.8 Magnesium 1.8 Total Bilirubin 0.5 Direct Bilirubin < 0.2 GGT 24 AST 11 ALT 5 Alkaline Phosphatase 56 Lactate Dehydrogenase 192 Total Protein 6.1 Albumin 3.1 L Globulin 3.0 Albumin/Globulin Ratio 1.0 Triglycerides 133 Preliminary micro results at discharge 04/07/18 16:00 Urine Culture - Preliminary Urine - Catheterized Medical - DS: A/P - Patient/Caregiver Discharge Instructions Activity: as per physical therapy, increase activity as tolerated Diet: Regular Diet Additional Instructions: Please call [facility] to reschedule f/u appt with Dr. Hill for patient regarding right wrist dressing change. Weightbearing recommendation as per orthopedics and radiotherapy Follow-up PCP in 5 days F/u orthopedics as scheduled by orthopedics along with post op care. I recommend SNF physician to check CBC BMP UA as a posthospital follow-up in 1 week. Continue aggressive bowel regimen to prevent constipation Continue fall precautions daily weights measurements and take additional 40 mg Lasix for 3 days if weight gain over 4 pounds over baseline or worsening shortness of breath and call primary care physician if inadequate response to Lasix Continue aggressive PT OT evaluation and treatment at [facility]. ST eval and treatment if indicated All meals on chair sitting upright at 90 degrees to prevent aspiration Return to ER if worsening fever chills shortness of breath, diarrhea, bleeding Continue diet and activity as advised Discussed importance of medication adherence Please review medication list with patient prior to discharge Please schedule follow-up with PCP/Providers prior to discharge and provide printouts Portions of this chart may have been created with [employer] voice recognition software. Occasional wrong-word or ?sound-like? substitutions may have occurred due to the inherent limitations of voice recognition software. Please read the chart carefully and recognize, using context, where the substitutions have occurred. CC- PCP Prescriptions: Acetaminophen [Tylenol] 650 mg PO Q4-6HP PRN #30 tab PRN Reason: Pain/Fever > 101 Other Amb Orders: OT Discharge Order Location: Determined By Patient Physical Therapy at Discharge - General Location: Determined By Patient - Follow up Plan Follow up with: Devi Wade [Primary Care Provider] - Disposition: [facility] Prognosis: Fair Rehab Potential: Fair I certify that the patient requires SNF services: Yes Overall status at discharge: patient is progressing back to baseline Medical - DS: Qual - VTE Deep Vein Thrombosis/Pulmonary Embolism Present on Admission: No
[2018-04-09] MEDS: DABIGATRAN ETEXILATE MESYLATE 75 MG CAPSULE PO SCH (09:39)
[2018-04-09] MEDS: Fluticasone/Vilanterol [Breo Ellipta 100-25 Mcg Inh INH SCH (09:55)
[2018-04-09] MEDS: oxyCODONE HCL 5 MG TABLET PO PRN (10:56)
[2018-04-09] MEDS: 0.9 % SODIUM CHLORIDE 1,000 ML IV SCH (11:05)
[2018-04-15] MEDS ORDERED: ERGOCALCIFEROL (VITAMIN D2) 50,000 UNIT CAPSULE PO SCH (09:00)
== END 2018-04-09 11:10 ==
LOC: ED 08:16 → MEDSUR 08:16
PROVIDERS: ADMIT Internal Medicine; ATTEND Internal Medicine

== ENCOUNTER 2025-01-13 12:02 | Inpatient (IN) ==
[2025-01-13] MEDS ORDERED: IOPAMIDOL 100 ML BOTTLE IV ONE (12:03)
[2025-01-13 13:09] LABS: Basophils # (Auto) 0.03 K/mcL (0.00-0.30); Basophils % (Auto) 0.5 % (0.0-2.0); Eosinophils # (Auto) 0.34 K/mcL (0.00-0.70); Eosinophils % (Auto) 5.1 % (0.0-7.0); Hematocrit 35.6 % (34.1-44.9); Hemoglobin 11.2 g/dL (11.2-15.7); Lymphocytes # (Auto) 0.82 K/mcL (1.50-4.80); Lymphocytes % (Auto) 12.3 % (15.5-49.0); Mean Cell Volume 89.2 fL (80.0-100.0); Mean Corpuscular HGB Conc 31.5 g/dL (31.0-36.0); Monocytes # (Auto) 0.72 K/mcL (0.10-0.90); Monocytes % (Auto) 10.8 % (1.0-12.0); Neutrophils % (Auto) 70.5 % (38.0-78.0); Platelet Count 167 K/mcL (140-440); RBC 3.99 M/mcL (3.59-5.38); Red Cell Distribution Width 14.2 % (11.5-14.5); WBC 6.7 K/mcL (4.5-11.0)
[2025-01-13 13:17] LABS: ALT/SGPT 12 U/L (<40); AST/SGOT 24 U/L (<32); Albumin 3.4 gm/dL (3.2-5.2); Albumin/Globulin Ratio 1.1 (1.0-2.3); Alkaline Phosphatase 64 U/L (39-117); Bilirubin,Total 0.4 mg/dL (0.1-1.0); Blood Urea Nitrogen 24 mg/dL (8-23); Calcium 8.6 mg/dL (8.6-10.4); Carbon Dioxide 23 mmol/L (22-30); Chloride 100 mmol/L (96-108); Glomerular Filtration Rate 37; Glucose 295 mg/dL (70-105); Potassium 3.7 mmol/L (3.3-5.1); Sodium 135 mmol/L (133-145)
[2025-01-13] MEDS: FUROSEMIDE 20 MG/2 ML VIAL IV ONE (13:46)
[2025-01-13] MEDS: cefTRIAXone 1 GM VIAL IV ONE (13:50)
[2025-01-13] MEDS: AZITHROMYCIN 500 MG in 0.9 % SODIUM CHLORIDE 250 ML IV SCH (13:50)
[2025-01-13] MEDS: IPRATROPIUM/ALBUTEROL 3 ML AMPUL.NEB NEB ONE ×2 (14:07→18:10)
[2025-01-13] MEDS: INSULIN REGULAR, HUMAN 1 UNIT/0.01 ML UNIT IV ONE (16:26)
[2025-01-13] MEDS: LEVOFLOXACIN 750 MG/150 ML BAG IV SCH (19:45)
[2025-01-13] MEDS: methylPREDNISolone SOD SUCC 125 MG/2 ML VIAL IV ONE (20:22)
[2025-01-13] MEDS: ACETAMINOPHEN 325 MG TABLET PO PRN (20:26)
[2025-01-13] MEDS: APIXABAN 5 MG TABLET PO SCH (20:26)
[2025-01-13] MEDS: FUROSEMIDE 40 MG/4 ML VIAL IV ONE (20:26)
[2025-01-13] MEDS: 0.9 % SODIUM CHLORIDE 10 ML SYRINGE IV SCH (20:27)
[2025-01-13] MEDS: IPRATROPIUM/ALBUTEROL 3 ML AMPUL.NEB NEB SCH (20:30)
[2025-01-13] MEDS ORDERED: DEXTROSE 31 GM ORAL.SUSP PO PRN (20:51)
[2025-01-13] MEDS ORDERED: DEXTROSE 50% 50 ML VIAL IV PRN (20:51)
[2025-01-13] MEDS ORDERED: APIXABAN 5 MG TABLET PO SCH (21:00)
[2025-01-13] MEDS ORDERED: methylPREDNISolone SOD SUCC 125 MG/2 ML VIAL IV SCH (21:00)
[2025-01-13] MEDS ORDERED: LIDOCAINE 5% OINT TUBE 35GM TOPICAL PRN (21:41)
[2025-01-13] MEDS: INSULIN LISPRO 1 UNIT/0.01 ML UNIT SQ SCH (22:42)
[2025-01-14 06:36] LABS: Basophils # (Auto) 0 K/mcL (0.00-0.30); Basophils % (Auto) 0 % (0.0-2.0); Eosinophils # (Auto) 0 K/mcL (0.00-0.70); Eosinophils % (Auto) 0 % (0.0-7.0); Hematocrit 33.8 % (34.1-44.9); Hemoglobin 10.9 g/dL (11.2-15.7); Lymphocytes # (Auto) 0.29 K/mcL (1.50-4.80); Mean Cell Volume 87.8 fL (80.0-100.0); Mean Corpuscular HGB Conc 32.2 g/dL (31.0-36.0); Mean Platelet Volume 11.3 fL (8.8-12.5); Monocytes # (Auto) 0.06 K/mcL (0.10-0.90); Monocytes % (Auto) 1.9 % (1.0-12.0); Neutrophils % (Auto) 88.2 % (38.0-78.0); Platelet Count 145 K/mcL (140-440); RBC 3.85 M/mcL (3.59-5.38); WBC 3.2 K/mcL (4.5-11.0)
[2025-01-14 07:22] LABS: Blood Urea Nitrogen 24 mg/dL (8-23); Calcium 8.5 mg/dL (8.6-10.4); Carbon Dioxide 22 mmol/L (22-30); Chloride 95 mmol/L (96-108); Glomerular Filtration Rate 37; Glucose 503 mg/dL (70-105); Potassium 3.8 mmol/L (3.3-5.1); Sodium 132 mmol/L (133-145)
[2025-01-14] MEDS: INSULIN GLARGINE, HUMAN 1 UNIT/0.01 ML SQ ONE ×2 (07:40→14:54)
[2025-01-14] MEDS: PREGABALIN 75 MG CAPSULE PO SCH (08:07)
[2025-01-14] MEDS: methylPREDNISolone SOD SUCC 125 MG/2 ML VIAL IV SCH (08:07)
[2025-01-14] MEDS: busPIRone 5 MG TABLET PO SCH (08:07)
[2025-01-14] MEDS: rOPINIRole 1 MG TABLET PO SCH (08:08)
[2025-01-14] MEDS: CARBIDOPA/LEVODOPA 25/100 TABLET PO SCH (08:08)
[2025-01-14] MEDS: Fluticasone-Umeclidin-Vilanter [Trelegy Ellipta] Inhaler INH SCH (08:08)
[2025-01-14] MEDS: INSULIN LISPRO 1 UNIT/0.01 ML UNIT SQ ONE ×4 (08:21→14:55)
[2025-01-14] MEDS: INSULIN LISPRO 1 UNIT/0.01 ML UNIT SQ SCH (17:10)
[2025-01-14] MEDS: FUROSEMIDE 40 MG/4 ML VIAL IV ONE (17:46)
[2025-01-14 18:36] LABS: Blood Urea Nitrogen 23 mg/dL (8-23); Calcium 9.1 mg/dL (8.6-10.4); Carbon Dioxide 24 mmol/L (22-30); Chloride 97 mmol/L (96-108); Glomerular Filtration Rate 37; Glucose 225 mg/dL (70-105); Potassium 3.5 mmol/L (3.3-5.1); Sodium 135 mmol/L (133-145)
[2025-01-14] MEDS: SENNOSIDES 1 TABLET PO PRN (19:58)
[2025-01-14] MEDS: guaiFENesin/CODEINE 10 ML UDC PO PRN (19:58)
[2025-01-14] MEDS ORDERED: INSULIN GLARGINE, HUMAN 1 UNIT/0.01 ML SQ SCH (21:00)
[2025-01-14] MEDS: traMADol 50 MG TABLET PO PRN (21:24)
[2025-01-14] MEDS: BUDESONIDE 0.5 MG/2 ML AMPUL.NEB NEB SCH (22:28)
[2025-01-15 06:59] LABS: Basophils # (Auto) 0.01 K/mcL (0.00-0.30); Basophils % (Auto) 0.1 % (0.0-2.0); Eosinophils # (Auto) 0.02 K/mcL (0.00-0.70); Eosinophils % (Auto) 0.3 % (0.0-7.0); Hematocrit 32.3 % (34.1-44.9); Hemoglobin 10.3 g/dL (11.2-15.7); Lymphocytes # (Auto) 1.02 K/mcL (1.50-4.80); Lymphocytes % (Auto) 13.8 % (15.5-49.0); Mean Cell Volume 88.3 fL (80.0-100.0); Mean Corpuscular HGB Conc 31.9 g/dL (31.0-36.0); Mean Platelet Volume 11.3 fL (8.8-12.5); Monocytes # (Auto) 0.58 K/mcL (0.10-0.90); Monocytes % (Auto) 7.8 % (1.0-12.0); Neutrophils % (Auto) 76.9 % (38.0-78.0); Platelet Count 195 K/mcL (140-440); RBC 3.66 M/mcL (3.59-5.38); Red Cell Distribution Width 14.1 % (11.5-14.5); WBC 7.4 K/mcL (4.5-11.0)
[2025-01-15 07:14] LABS: Blood Urea Nitrogen 24 mg/dL (8-23); C-Reactive Protein 8.29 mg/dL (0.03-0.80); Carbon Dioxide 26 mmol/L (22-30); Chloride 100 mmol/L (96-108); Glomerular Filtration Rate 34; Glucose 216 mg/dL (70-105); Potassium 3.8 mmol/L (3.3-5.1); Sodium 138 mmol/L (133-145)
[2025-01-15] MEDS: INSULIN GLARGINE, HUMAN 1 UNIT/0.01 ML SQ SCH (08:20)
[2025-01-15] MEDS: methylPREDNISolone SOD SUCC 40 MG/ML VIAL IV SCH (08:21)
[2025-01-15] MEDS ORDERED: ALBUTEROL SULFATE 2.5 MG/3 ML NEBULIZER NEB PRN (09:22)
[2025-01-15] MEDS: IPRATROPIUM/ALBUTEROL 3 ML AMPUL.NEB NEB PRN (09:27)
[2025-01-15] MEDS ORDERED: IPRATROPIUM/ALBUTEROL 3 ML AMPUL.NEB NEB SCH (13:00)
[2025-01-15] MEDS: IPRATROPIUM/ALBUTEROL 3 ML AMPUL.NEB NEB SCH ×2 (14:01→22:19)
[2025-01-16 06:53] LABS: C-Reactive Protein 4.52 mg/dL (0.03-0.80)
[2025-01-16 06:54] LABS: ALT/SGPT 7 U/L (<40); AST/SGOT 34 U/L (<32); Albumin 3.3 gm/dL (3.2-5.2); Albumin/Globulin Ratio 1.4 (1.0-2.3); Alkaline Phosphatase 55 U/L (39-117); Bilirubin,Direct < 0.2 mg/dL (0-0.3); Bilirubin,Total < 0.2 mg/dL (0.1-1.0); Blood Urea Nitrogen 26 mg/dL (8-23); Calcium 8.9 mg/dL (8.6-10.4); Carbon Dioxide 27 mmol/L (22-30); Chloride 102 mmol/L (96-108); Globulin 2.4 gm/dL (2.2-3.7); Glomerular Filtration Rate 37; Glucose 76 mg/dL (70-105); Lactate Dehydrogenase 162 U/L (135-225); Phosphorous 3.9 mg/dL (2.5-4.5); Potassium 3.8 mmol/L (3.3-5.1); Sodium 141 mmol/L (133-145); Triglycerides 88 mg/dL (<150); Uric Acid 6.7 mg/dL (2.5-8.0)
[2025-01-16] MEDS: LEVOFLOXACIN 750 MG/150 ML BAG IV SCH (10:43)
[2025-01-16 12:28] LABS: Estimated Average Glucose(eAG) 154 mg/dL
[2025-01-17 06:27] LABS: Blood Urea Nitrogen 27 mg/dL (8-23); C-Reactive Protein 2.56 mg/dL (0.03-0.80); Calcium 8.7 mg/dL (8.6-10.4); Carbon Dioxide 29 mmol/L (22-30); Chloride 102 mmol/L (96-108); Glomerular Filtration Rate 37; Glucose 107 mg/dL (70-105); Potassium 4.1 mmol/L (3.3-5.1); Sodium 141 mmol/L (133-145)
[2025-01-17] MEDS: predniSONE 20 MG TABLET PO SCH (08:13)
[2025-01-17] MEDS ORDERED: IOPAMIDOL 100 ML BOTTLE IV ONE (12:44)
[2025-01-17 13:38] LABS: Hemoglobin 10.8 g/dL (11.2-15.7)
[2025-01-17 13:57] LABS: Partial Thromboplastin Time 30.5 sec (20.0-37.0)
[2025-01-17] MEDS: SODIUM BICARBONATE VIAL 150 MEQ in WATER FOR INJECTION,STERILE 850 ML IV SCH (14:13)
[2025-01-17 14:27] LABS: INR 1.5 (0.9-1.1); Prothrombin Time 18.9 sec (11.9-14.5)
[2025-01-17] MEDS: HYDROcodone/APAP 5/325MG TABLET PO PRN (14:48)
[2025-01-18 06:27] LABS: Blood Urea Nitrogen 26 mg/dL (8-23); C-Reactive Protein 1.89 mg/dL (0.03-0.80); Calcium 8.3 mg/dL (8.6-10.4); Carbon Dioxide 32 mmol/L (22-30); Chloride 96 mmol/L (96-108); Glomerular Filtration Rate 41; Glucose 75 mg/dL (70-105); Sodium 138 mmol/L (133-145)
[2025-01-18 06:36] LABS: Basophils # (Auto) 0.01 K/mcL (0.00-0.30); Basophils % (Auto) 0.1 % (0.0-2.0); Eosinophils # (Auto) 0.08 K/mcL (0.00-0.70); Eosinophils % (Auto) 0.7 % (0.0-7.0); Hematocrit 27.9 % (34.1-44.9); Hemoglobin 8.9 g/dL (11.2-15.7); Lymphocytes # (Auto) 1.64 K/mcL (1.50-4.80); Lymphocytes % (Auto) 14.9 % (15.5-49.0); Mean Cell Volume 89.1 fL (80.0-100.0); Mean Corpuscular HGB Conc 31.9 g/dL (31.0-36.0); Mean Platelet Volume 10.9 fL (8.8-12.5); Monocytes % (Auto) 8.2 % (1.0-12.0); Neutrophils % (Auto) 73.2 % (38.0-78.0); Platelet Count 267 K/mcL (140-440); RBC 3.13 M/mcL (3.59-5.38); Red Cell Distribution Width 14.4 % (11.5-14.5)
[2025-01-19 06:37] LABS: Blood Urea Nitrogen 21 mg/dL (8-23); Calcium 8.3 mg/dL (8.6-10.4); Carbon Dioxide 33 mmol/L (22-30); Chloride 98 mmol/L (96-108); Glomerular Filtration Rate 37; Glucose 114 mg/dL (70-105); Potassium 3.9 mmol/L (3.3-5.1); Sodium 139 mmol/L (133-145)
[2025-01-19 07:39] LABS: Hematocrit 25.7 % (34.1-44.9); Hemoglobin 8.2 g/dL (11.2-15.7)
[2025-01-20 06:47] LABS: Hematocrit 25.9 % (34.1-44.9); Hemoglobin 8.2 g/dL (11.2-15.7)
[2025-01-20 07:00] LABS: Blood Urea Nitrogen 23 mg/dL (8-23); Calcium 8.4 mg/dL (8.6-10.4); Carbon Dioxide 31 mmol/L (22-30); Chloride 102 mmol/L (96-108); Glomerular Filtration Rate 41; Glucose 156 mg/dL (70-105); Potassium 4.7 mmol/L (3.3-5.1); Sodium 141 mmol/L (133-145)
[2025-01-20] MEDS: ALENDRONATE SODIUM 70 MG TABLET PO SCH (08:02)
[2025-01-20] MEDS: predniSONE 20 MG TABLET PO SCH (09:09)
[2025-01-20] MEDS: LEVOFLOXACIN 750 MG TABLET PO SCH (09:10)
[2025-01-20] MEDS: ONDANSETRON 4 MG/2 ML VIAL IV PRN (22:39)
[2025-01-20] MEDS: METOCLOPRAMIDE 10 MG/2 ML VIAL IV PRN (22:53)
[2025-01-20] MEDS: METOCLOPRAMIDE 10 MG/2 ML VIAL ONE (23:03)
[2025-01-21] MEDS: 0.9 % SODIUM CHLORIDE 1,000 ML IV ONE (10:07)
[2025-01-21] MEDS ORDERED: IOPAMIDOL 100 ML BOTTLE IV ONE (10:11)
[2025-01-21] MEDS: 0.9 % SODIUM CHLORIDE 1,000 ML IV SCH (11:18)
[2025-01-21] MEDS ORDERED: HEPARIN 5,000 UNIT/ML VIAL IV PRN ×3 (14:56)
[2025-01-21] MEDS: HEPARIN SOD,PORK IN 0.45% NACL 500 ML IV SCH (16:00)
[2025-01-21 16:35] LABS: Basophils # (Auto) 0 K/mcL (0.00-0.30); Basophils % (Auto) 0 % (0.0-2.0); Eosinophils # (Auto) 0 K/mcL (0.00-0.70); Eosinophils % (Auto) 0 % (0.0-7.0); Hematocrit 28.9 % (34.1-44.9); Lymphocytes # (Auto) 0.71 K/mcL (1.50-4.80); Lymphocytes % (Auto) 7.5 % (15.5-49.0); Mean Cell Volume 90.3 fL (80.0-100.0); Mean Corpuscular HGB Conc 31.1 g/dL (31.0-36.0); Mean Platelet Volume 10.6 fL (8.8-12.5); Monocytes # (Auto) 0.24 K/mcL (0.10-0.90); Monocytes % (Auto) 2.5 % (1.0-12.0); Platelet Count 285 K/mcL (140-440); Red Cell Distribution Width 14.9 % (11.5-14.5); WBC 9.5 K/mcL (4.5-11.0)
[2025-01-21 17:25] LABS: Anti-XA-UFH < 0.10 IU/mL (0.3-0.6)
[2025-01-21] MEDS: METOCLOPRAMIDE 10 MG/2 ML VIAL IV PRN (21:06)
[2025-01-22 05:40] LABS: Basophils # (Auto) 0.02 K/mcL (0.00-0.30); Basophils % (Auto) 0.3 % (0.0-2.0); Eosinophils # (Auto) 0.09 K/mcL (0.00-0.70); Eosinophils % (Auto) 1.4 % (0.0-7.0); Hematocrit 26.4 % (34.1-44.9); Hemoglobin 8.2 g/dL (11.2-15.7); Lymphocytes % (Auto) 26.6 % (15.5-49.0); Mean Cell Volume 91.3 fL (80.0-100.0); Mean Corpuscular HGB Conc 31.1 g/dL (31.0-36.0); Mean Platelet Volume 9.9 fL (8.8-12.5); Monocytes # (Auto) 0.53 K/mcL (0.10-0.90); Monocytes % (Auto) 8.3 % (1.0-12.0); Neutrophils % (Auto) 58.1 % (38.0-78.0); Platelet Count 239 K/mcL (140-440); RBC 2.89 M/mcL (3.59-5.38); Red Cell Distribution Width 15.1 % (11.5-14.5); WBC 6.4 K/mcL (4.5-11.0)
[2025-01-22 06:00] LABS: Blood Urea Nitrogen 27 mg/dL (8-23); Calcium 8.3 mg/dL (8.6-10.4); Carbon Dioxide 28 mmol/L (22-30); Chloride 107 mmol/L (96-108); Glomerular Filtration Rate 45; Glucose 93 mg/dL (70-105); Phosphorous 4.3 mg/dL (2.5-4.5); Potassium 4.3 mmol/L (3.3-5.1); Sodium 143 mmol/L (133-145)
[2025-01-22 10:48] LABS: Appearance,Urine Clear (Clear); Bilirubin,Urine Negative (Negative); Color,Urine Yellow; Glucose,Urine (UA) Negative (Negative); Ketones,Urine Negative (Negative); Leukocyte Esterase,Urine Negative /uL (Negative); Nitrate,Urine Negative (Negative); PH,Urine 5.5 (5.0-9.0); Protein,Urine Negative (Negative); Urine Blood Negative ery/mcL (Negative); Urobilinogen,Urine Normal
[2025-01-23 05:49] LABS: Basophils # (Auto) 0.01 K/mcL (0.00-0.30); Basophils % (Auto) 0.1 % (0.0-2.0); Eosinophils # (Auto) 0.03 K/mcL (0.00-0.70); Eosinophils % (Auto) 0.4 % (0.0-7.0); Hematocrit 25.8 % (34.1-44.9); Lymphocytes # (Auto) 1.41 K/mcL (1.50-4.80); Lymphocytes % (Auto) 16.5 % (15.5-49.0); Mean Cell Volume 91.8 fL (80.0-100.0); Mean Platelet Volume 10.3 fL (8.8-12.5); Monocytes # (Auto) 0.68 K/mcL (0.10-0.90); Neutrophils % (Auto) 72.1 % (38.0-78.0); Platelet Count 244 K/mcL (140-440); RBC 2.81 M/mcL (3.59-5.38); Red Cell Distribution Width 15.2 % (11.5-14.5); WBC 8.5 K/mcL (4.5-11.0)
[2025-01-23] MEDS: predniSONE 20 MG TABLET PO SCH (08:02)
[2025-01-23 12:00] VITALS: O2SAT 92
[2025-01-23 16:39] VITALS: TEMP 98.1
== END 2025-01-23 16:00 | DRG 555 ==
LOC: ED 12:02 → MEDSUR 19:21 → ICU 01-17 14:02 → MEDSUR 01-20 12:51
PROVIDERS: ADMIT Student in an Organized Health Care Education/Training Program; ATTEND Student in an Organized Health Care Education/Training Program